=== PATIENT | male | born 1940 | race Hispanic/Latino ===

== ENCOUNTER 2019-10-19 12:38 | Inpatient (IN) | payer BC, MEDICARE ==
[2019-10-19] MEDS ORDERED: DEXTROSE 50% IN WATER (25GM) 50 ML SYRINGE IV PRN (16:25)
[2019-10-19] MEDS ORDERED: ACETAMINOPHEN 325 MG TAB PO PRN (16:35)
[2019-10-19] MEDS ORDERED: hydrALAZINE 20 MG/1 ML INJ IV PRN (16:35)
[2019-10-19] MEDS ORDERED: POLYETHYLENE GLYCOL 3350 17 GM POWDER PO PRN (16:35)
[2019-10-19] MEDS ORDERED: ONDANSETRON 4 MG ODT TAB PO PRN (16:35)
[2019-10-19] MEDS ORDERED: ALBUTEROL 2.5 MG/3 ML NEBU IH PRN (16:35)
[2019-10-19] MEDS ORDERED: LACTULOSE 20 GM/30 ML ORAL LIQD PO PRN (16:38)
--- NOTE | 2019-10-19 17:46 | History and Physical Report ---
History of Present Illness Date: 10/19/19 Date of admission: 10/19/19 17:33 Chief Complaint: Left hip fracture History of present illness: 79-year-old male who slipped exiting the shower resulting in left hip and shoulder pain. He was at his vacation home in [place] when this occurred and was transferred to the nearest ER in [place]. Denies hitting his head and once in the ER was found to have a left intertrochanteric fracture on x-ray. He was admitted and underwent repair by IM nail with Dr. Bernabe Valiente on October 07, 2019. There were no surgical complications. He was started on Eliquis for DVT prophylaxis. He is weightbearing as tolerated. He was evaluated by therapy and deemed to be an appropriate candidate for inpatient rehabilitation. Once he was medically stabilized he was transferred back to [place] for rehabilitation. All available medical records have been reviewed. Plan of care was discussed with patient and family. On exam patient states that he has a history of vitamin B-12 deficiency for which he takes an excessive amount of vitamin B12 daily. He also states that he has had an iron deficiency and continues to take iron replacement as well. Will check lab values to ensure that we need to continue with replacement. 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 He does state this is been ongoing for several years and he does drop things at times. Nothing makes it better and use will often times aggravated. He questions whether or not this is coming from the neck possibly or if it is related to his diabetes. A1c is very low and he has been borderline but this could still be diabetic in nature are very well may be nutritional or peripheral in nature. Discussed with him needing to get a referral for outpatient testing utilizing EMG nerve conduction studies in order to elucidate the issue. We will attempt to draw labs to further work-up. He also states that he does have issues with balance but primarily only when outside on uneven surfaces. Denies using a cane or any other assistive device but states that he has had near falls in the past. 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 denies: smoking, alcohol abuse, prescription drug abuse Family history: cancer, hypertension, stroke Medications and Allergies Allergies Allergy/AdvReac Type Severity Reaction Status Date / Time No Known Allergies Allergy Verified 10/19/19 12:40 Home Medications Medication Instructions Recorded Confirmed Last Taken Type Eliquis 2.5 mg PO BID 10/20/19 10/20/19 10/18/19 History Ergocalciferol (Vitamin D2) 1.25 mg PO QWEEK 10/20/19 10/20/19 10/19/19 History [Vitamin D2] Insulin Glargine [Lantus VIAL] 8 units SQ QHS 10/20/19 10/20/19 10/20/19 History Lactulose 10 gm PO DAILY 10/20/19 10/20/19 Unknown History Pantoprazole [Protonix] 40 mg PO QDAY 10/20/19 10/20/19 10/19/19 History amLODIPine 10 mg PO DAILY 10/20/19 10/20/19 10/18/19 History carvediloL [Coreg] 12.5 mg PO BID 10/20/19 10/20/19 10/19/19 History Active Meds: Active Medications Acetaminophen (Tylenol) 650 mg PO Q6H PRN PRN Reason: Non Cardiac Pain or Temp>100.5 Albuterol (Proventil) 2.5 mg IH Q4HRT PRN PRN Reason: Shortness Of Breath Amlodipine Besylate (Amlodipine) 10 mg PO QDAY [facility] Apixaban (Eliquis) 2.5 mg PO Q12HR [facility]; Protocol Stop: 11/08/19 23:59 Ascorbic Acid (Vitamin C) 500 mg PO QDAY [facility] Aspirin (Halfprin Ec) 81 mg PO QDAY [facility] Bisacodyl (Dulcolax) 10 mg VT QDAY PRN PRN Reason: Constipation Carvedilol (Coreg) 12.5 mg PO BID [facility] Cyanocobalamin (Vitamin B-12) 1,000 mcg PO QDAY [facility] Dextrose (D50w (25gm) Syringe) 50 ml IV Q30MIN PRN; Protocol PRN Reason: Hypoglycemia Ferrous Sulfate (Feosol) 325 mg PO QDAY [facility] Fish Oil (Fish Oil) 2,000 mg PO BID [facility] Hydralazine HCl (Apresoline) 10 mg IV Q4HR PRN PRN Reason: HTN SBP>160 Insulin Glargine (Lantus) 10 units SUB-Q QHS [facility] Insulin Human Lispro (Humalog) 0 unit SUB-Q ACHS [facility]; Protocol Lactulose (Cephulac) 20 gm PO QHS PRN PRN Reason: Constipation Multivitamins/Minerals (Caltrate Plus) 1 each PO QDAY [facility] Ondansetron HCl (Zofran Odt) 4 mg PO Q8H PRN PRN Reason: Nausea And Vomiting Pantoprazole Sodium (Protonix) 40 mg PO QDAY [facility] Polyethylene Glycol (Miralax 3350) 17 gm PO QDAY PRN PRN Reason: Constipation Review of Systems All systems: negative (ROS negative for 12 systems except as noted below with pertinent positives and negatives.) Constitutional: weakness Ears, nose, mouth and throat: decreased hearing Cardiovascular: no chest pain, no palpitations, no rapid/irregular heart beat, no edema Respiratory: no cough, no shortness of breath Gastrointestinal: other (Incisional hernia), no abdominal pain, no diarrhea, no constipation, no change in bowel habits Musculoskeletal: gait dysfunction, fractures, arthritis Integumentary: wounds, no rash, no pruritis Neurological: weakness, numbness Psychiatric: insomnia Exam - Exam Narrative exam: MUSCULOSKELETAL SPECIALTY EXAM CONSTITUTIONAL: Well developed, well nourished, appropriately groomed, obese LYMPHATIC: No appreciable abnormalities palpable in neck EENT: EOMI. Oropharynx clear. Hearing intact to louder voice RESPIRATORY: Clear to auscultation bilaterally, no increased work of breathing CARDIOVASCULAR: Mild postsurgical swelling on left lower extremity as expected, otherwise regular Rate/ Rhythm, no swelling, edema or tenderness in BUE or BLE. Pulses palpable in all extremities. All extremities warm. GI: + bowel sounds, soft, NTTP, nondistended. Large ventral hernia, reducible, incisional with associated scarring. INTEGUMENTARY: Normal, no lesion, rash, masses or bruising noted in extremities. Abdominal scarring as noted above. MUSCULOSKELETAL: Left IM nail for hip fracture repair, remote left TKA, arthritic changes in hands otherwise BUE and BLE normal without defect, crepitus, subluxation, effusion, or TTP. RUE 4+/5, good ROM, with normal tone. LUE has decreased range of motion due to pain, normal tone,4+/5 RLE 4+/5 good ROM, with normal tone. LLE has decreased range of motion due to pain, normal tone,4+/5 Slight wasting noted right greater than left of the first dorsal interosseous. Environmental Advisor intact. NEURO: CN 2-12 grossly intact. Sensation intact in all extremities with some decrease in the lower extremities and at the hands. Reflexes 2+ bilaterally at biceps, brachioradialis and patella. No clonus at ankles. Coordination intact in BUE. No tremor noted in 4 extremities. Negative Tinel sign at the bilateral carpal and cubital tunnels POSTURE and GAIT: Sitting posture good. Balance appears reasonable. Gait deferred until seen with therapy. PSYCH: Alert, oriented x3, affect appears normal. Insight appears intact. - Labs CBC & Chem 7: 10/20/19 07:45 10/20/19 07:45 Assessment and Plan Assessment and plan: Patient was assessed and evaluated for Acute Inpatient Rehab Unit. Due to the patients above-mentioned medical complexity, along with decreased functional mobility and self care, this patient continues to require and be appropriate for a comprehensive, multidisciplinary [id number] rehabilitation program. These needs cannot be met in an outpatient or other less intensive setting. The patient would continue to benefit from skilled therapy intervention for at least 3 hours per day, five days a week, with techniques specific to the needs of the patient to improve function, activities of daily living, and reintegration into the community. The patient continues to require: -- OT to improve ROM, self-care, and learn use of adaptive equipment -- PT to improve strength and balance, functional transfers, and ambulation with energy conservation techniques to improve functional mobility -- 24 hour RN to ensure and prevent skin breakdown, promote progressive independence while ensuring safety, ensure education regarding medications, and incorporation of the rehabilitation at the bedside -- 24 hour Cardboard Cutter to coordinate this interdisciplinary program, and to manage/prevent complications as a result of the patients medical comorbidities. -Plan of care by day 4 -Weekly team conferences With such a program, there is a reasonable certainty that the goals individualized for this patient can be achieved within the specified length of stay. Left hip fracture: Continue therapy as above. Increase mobility as tolerated. Continue to monitor wound with wound team. Weightbearing as tolerated per surgeon's instructions. Eliquis for DVT prophylaxis. Monitor for any signs of wound dehiscence, infection or increasing pain. Hypertension: Continue medications. Monitor blood pressure and adjust medications as needed for normotension. Hold for hypotension Diabetes type 2: Continue carb controlled diet. Continue insulin and adjust as needed for normoglycemia. Check A1c Short bowel syndrome: We will check labs. Uncertain at this point what portion of the bowel the patient had removed and we are relying on his recollection of over 20 years ago. Question why he was taking vitamin B12 orally versus injections if he did not have a terminal ileum. Anemia: Continue iron B12. Monitor hemoglobin on a regular basis adjust medications as needed. Patient believes he may have had anemia before but this is likely exacerbated by postsurgical changes as well. Bilateral upper extremity numbness and weakness: We will check lab values. Patient will need further work-up as an outpatient with needle EMG and nerve conduction study. Less likely that this is coming from cervical cause as the patient does not describe any radicular symptoms. After we have baseline labs will consider starting gabapentin for symptomatic relief. Possible renal issue: Reported at outside hospital as a possibility but details were lacking. Patient not real helpful in this regard other than the fact that he thinks he had renal problems. Will monitor renal function and adjust medications as needed if this is indeed the case. ADL dysfunction: OT will work on improving ability to perform ADLs (including assistive devices) to increase independence and decrease caregiver burden and improve functional transfers and mobility training. Difficulty walking: PT will work on gait training and proper use of assistive devices and advance as appropriate to use of stairs and outside ambulation on uneven surfaces. Unsteadiness on feet: PT will work on improving static and dynamic sitting and standing balance as well as proper use of assistive devices to decrease risk of falls. Abnormality of gait: PT will work to improve safety and efficiency of gait through neuromotor training and gait training along with instruction on proper use of assistive devices. Muscle weakness: PT & OT will work on strengthening exercises to improve funct ional strength including mixture of closed and open kinetic chain exercises. Debility: PT & OT will work on improving overall functional status to improve participation with ADLs, mobility and social involvement. Fatigue: PT & OT will work on improving endurance through aerobic exercises and therapeutic activity while monitoring patients tolerance for activity and vital signs as needed. DVT ppx: Eliquis Pain: Continue physical modalities in therapy and pain medications as needed to achieve functional pain control. Sleep: Monitor and address as needed. Bowel: Monitor and address as needed. Appetite: Monitor and address as needed. Discharge planning: Pending therapy progress and care plan meeting. Will continue discussion with therapy team, SW, patient and family. Restrictions/ Precautions: Falls WB status: FWB Functional Hx: ADLs: Independent Cognition: Independent Mobility: No AD Barriers to Discharge: Decreased mobility and ability to perform self care, balance deficits, weakness, wound care Estimated Length of Stay: 14-18 days days Discharge Destination: Home with family POST ADMISSION PHYSICIAN EVALUATION I have examined the patient and find that functional status, medical condition and appropriateness for IRF admission are essentially unchanged from those de scribed in the preadmission screening. Will monitor for worsening left hip wound, pain control, wound dehiscence, DVT/PE, bowel and bladder complications and complications due to hypertension, diabetes, short bowel syndrome and electrolyte abnormalities. Will attempt to avoid occurrence of these issues or treat them if they present themselves.
[2019-10-19] MEDS: APIXABAN 2.5 MG TAB PO SCH (22:03)
[2019-10-19] MEDS: OMEGA-3 FATTY ACIDS/FISH OIL 1 GRAM CAP PO SCH (22:03)
[2019-10-19] MEDS: INSULIN GLARGINE 100 UNITS/ML SUB-Q SCH (22:17)
[2019-10-19] MEDS: INSULIN LISPRO 100 UNIT/ML SUB-Q SCH ×2 (22:17→22:27)
[2019-10-19] MEDS: carvediloL 12.5 MG TAB PO SCH (22:20)
[2019-10-20 08:44] LABS: Basophils # (Auto) 0.1 K/mm3 (0.0-0.1); Basophils % (Auto) 0.8 % (0.0-1.8); Eosinophils # (Auto) 0.2 K/mm3 (0.0-0.4); Hematocrit 32.7 % (35.5-45.6); Hemoglobin 10.3 gm/dl (11.8-15.2); Lymphocytes % (Auto) 13.8 % (13.4-35.0); Mean Corpuscular HGB Conc 32 % (32-34); Mean Corpuscular Volume 94 fl (84-94); Monocytes # (Auto) 0.6 K/mm3 (0.0-0.8); Platelet Count 521 K/mm3 (140-440); Red Blood Count 3.47 M/mm3 (3.65-5.03); Red Cell Distribution Width 17.4 % (13.2-15.2)
[2019-10-20] MEDS: INSULIN LISPRO 100 UNIT/ML SUB-Q SCH ×4 (08:48→22:07)
[2019-10-20] MEDS: ASCORBIC ACID 500 MG TAB PO SCH (08:51)
[2019-10-20] MEDS: carvediloL 12.5 MG TAB PO SCH ×2 (08:51→22:16)
[2019-10-20] MEDS: FERROUS SULFATE 325 MG TAB PO SCH (08:51)
[2019-10-20] MEDS: amLODIPine 10 MG TAB PO SCH (08:51)
[2019-10-20] MEDS: APIXABAN 2.5 MG TAB PO SCH ×3 (08:51→22:06)
[2019-10-20] MEDS: OMEGA-3 FATTY ACIDS/FISH OIL 1 GRAM CAP PO SCH ×2 (08:51→22:07)
[2019-10-20] MEDS: PANTOPRAZOLE 40 MG TAB PO SCH (08:51)
[2019-10-20] MEDS: CALCIUM CARB/VIT D3/MINERALS 600 MG/800 UNITS TAB PO SCH (08:51)
[2019-10-20] MEDS: ASPIRIN EC 81 MG TAB PO SCH (08:51)
[2019-10-20] MEDS: CYANOCOBALAMIN (VIT B-12) 1000 MCG TAB PO SCH (08:51)
[2019-10-20 09:03] LABS: Alanine Aminotransferase 37 units/L (7-56); Albumin 3.2 g/dL (3.9-5); BUN/Creatinine Ratio 15; Blood Urea Nitrogen 17 mg/dL (9-20); Calcium 8.8 mg/dL (8.4-10.2); Hemolysis Index 2; Iron 32 ug/dL (49-181); Total Iron Binding Capacity 252 mcg/dL (250-450)
--- NOTE | 2019-10-20 15:26 | Progress Note ---
Subjective Date of service: 10/20/19 Principal diagnosis: Left hip fracture Interval history: 79-year-old male who slipped exiting the shower resulting in left hip and shoulder pain. He was at his vacation home in [place] when this occurred and was transferred to the nearest ER in [place]. Denies hitting his head and once in the ER was found to have a left intertrochanteric fracture on x-ray. He was admitted and underwent repair by IM nail with Dr. Bernabe Valiente on October 07, 2019. There were no surgical complications. He was started on Eliquis for DVT prophylaxis. He is weightbearing as tolerated. He was evaluated by therapy and deemed to be an appropriate candidate for inpatient rehabilitation. Once he was medically stabilized he was transferred back to [place] for rehabilitation. All available medical records have been reviewed. Plan of care was discussed with patient and family. On exam patient states that he has a history of vitamin B-12 deficiency for which he takes an excessive amount of vitamin B12 daily. He also states that he has had an iron deficiency and continues to take iron replacement as well. Will check lab values to ensure that we need to continue with replacement. 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 He does state this is been ongoing for several years and he does drop things at times. Nothing makes it better and use will often times aggravated. He questions whether or not this is coming from the neck possibly or if it is related to his diabetes. A1c is very low and he has b een borderline but this could still be diabetic in nature are very well may be nutritional or peripheral in nature. Discussed with him needing to get a referral for outpatient testing utilizing EMG nerve conduction studies in order to elucidate the issue. We will attempt to draw labs to further work-up. He also states that he does have issues with balance but primarily only when outside on uneven surfaces. Denies using a cane or any other assistive device but states that he has had near falls in the past. Interval History: Patient is participating in therapy and making reasonable progress. Taking rest breaks as needed. +BM. Denies pain, palpitations, dyspnea, cough, N/V, weakness, or joint pain. Left hip fracture: Pain well controlled with medication. No signs of DVT, abnormal swelling, wound dehiscence, infection. Continue weightbearing as tolerated and therapy as noted below. Hypertension: Slightly on the higher side. We will continue to monitor and adjust medications if still elevated tomorrow. Diabetes: Suffer glucose checks have been reasonable. Hemoglobin A1c was 7.0. Continue insulin and carb controlled diet and adjust as needed. Anemia: Normocytic anemia with decreased level of iron and normal TIBC and ferritin and elevated folate and vitamin B12. 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 Do not have good information or ability to look into historical record. Patient is thinking that part of the ileum as well as colon were taken however his description of the surgery has varied. Vitamin B12 folate are both elevated, iron is slightly decreased. Possible renal disease: Based on laboratory values obtained this morning, do not see any issues with renal function at this point. However the patient does have issues with both diabetes and hypertension so watching his renal function would be a good idea for the patient in the long-term. Neuropathy: Neuropathic pain continues. Will start gabapentin and monitor for improvement. Patient will need to follow-up with either neurology or interve ntional PMNR who can perform a nerve conduction study and EMG. All records, vitals, labs and medications were reviewed. No other issues per patient, nursing or therapy. Patient discussed during team conference. This is initial therapy eval's in session. We will continue to work with the patient and reassess next week. Looking at the beginning of November for likely discharge date at this point. Objective - Exam Narrative Exam: MUSCULOSKELETAL SPECIALTY EXAM CONSTITUTIONAL: Well developed, well nourished, appropriately groomed, obese EENT: Hearing intact to louder voice RESPIRATORY: Clear to auscultation bilaterally, no increased work of breathing CARDIOVASCULAR: Mild postsurgical swelling on left lower extremity as expected, otherwise regular Rate/ Rhythm, no swelling, edema or tenderness in BUE or BLE. All extremities warm. GI: + bowel sounds, soft, NTTP, nondistended. Large ventral hernia, reducible, incisional with associated scarring. INTEGUMENTARY: Normal, no lesion, rash, masses or bruising noted in extremities. Abdominal scarring as noted above. MUSCULOSKELETAL: Left IM nail for hip fracture repair, remote left TKA, arthritic changes in hands otherwise BUE and BLE normal without defect, crepitus, subluxation, effusion, or TTP. RUE 4+/5, good ROM, with normal tone. LUE has decreased range of motion due to pain, normal tone,4+/5 RLE 4+/5 good ROM, with normal tone. LLE has decreased range of motion due to pain, normal tone,4+/5 Slight wasting noted right greater than left of the first dorsal interosseous. Patient Resource Coordinator intact. NEURO: CN 2-12 grossly intact. Sensation intact in all extremities with some decrease in the lower extremities and at the hands. No tremor noted in 4 extremities. POSTURE and GAIT: Sitting posture good. Balance appears reasonable. Gait deferred until seen with therapy. PSYCH: Alert, oriented x3, affect appears normal. Insight appears intact. - Constitutional Vitals: Vital Signs - 12hr 10/20/19 10/20/19 10/20/19 04:37 07:45 09:53 Temperature 98.6 F 98.3 F Pulse Rate 84 71 Respiratory 17 18 Rate Blood Pressure 157/84 143/69 O2 Sat by Pulse 94 94 95 Oximetry 10/20/19 11:25 Temperature 98.5 F Pulse Rate 74 Respiratory 18 Rate Blood Pressure 139/65 O2 Sat by Pulse 94 Oximetry - Allied health notes Allied health notes reviewed: nursing, PT, OT FIMS assessment as documented by PT/OT/ST: Locomotion- walk/wheelchair Ambulation Distance 50 - Labs CBC & Chem 7: 10/20/19 07:45 10/20/19 07:45 Labs: Laboratory Results - last 72 hr 10/19/19 10/20/19 10/20/19 20:58 07:31 07:45 WBC 7.0 RBC 3.47 L Hgb 10.3 L Hct 32.7 L MCV 94 MCH 30 MCHC 32 RDW 17.4 H Plt Count 521 H Lymph % (Auto) 13.8 [place] % (Auto) 9.0 H Eos % (Auto) 3.0 Baso % (Auto) 0.8 Lymph # 1.0 L [place] # 0.6 Eos # 0.2 Baso # 0.1 Seg Neutrophils % 73.4 H Seg Neutrophils # 5.1 Sodium Potassium Chloride Carbon Dioxide Anion Gap BUN Creatinine Estimated GFR BUN/Creatinine Ratio Glucose POC Glucose 178 H 121 H Hemoglobin A1c Calcium Iron TIBC Ferritin Total Bilirubin AST ALT Alkaline Phosphatase Total Protein Albumin Albumin/Globulin Ratio Vitamin B12 Folate 10/20/19 10/20/19 10/20/19 07:45 07:45 07:45 WBC RBC Hgb Hct MCV MCH MCHC RDW Plt Count Lymph % (Auto) [place] % (Auto) Eos % (Auto) Baso % (Auto) Lymph # [place] # Eos # Baso # Seg Neutrophils % Seg Neutrophils # Sodium 137 Potassium 4.3 Chloride 102.0 Carbon Dioxide 22 Anion Gap 17 BUN 17 Creatinine 1.1 Estimated GFR > 60 BUN/Creatinine Ratio 15 Glucose 121 H POC Glucose Hemoglobin A1c 7.0 H Calcium 8.8 Iron 32 L TIBC 252 Ferritin 69.4 Total Bilirubin 0.60 AST 22 ALT 37 Alkaline Phosphatase 143 H Total Protein 6.0 L Albumin 3.2 L Albumin/Globulin Ratio 1.1 Vitamin B12 Folate 10/20/19 10/20/19 10/20/19 07:45 07:45 11:15 WBC RBC Hgb Hct MCV MCH MCHC RDW Plt Count Lymph % (Auto) [place] % (Auto) Eos % (Auto) Baso % (Auto) Lymph # [place] # Eos # Baso # Seg Neutrophils % Seg Neutrophils # Sodium Potassium Chloride Carbon Dioxide Anion Gap BUN Creatinine Estimated GFR BUN/Creatinine Ratio Glucose POC Glucose 134 H Hemoglobin A1c Calcium Iron TIBC Ferritin Total Bilirubin AST ALT Alkaline Phosphatase Total Protein Albumin Albumin/Globulin Ratio Vitamin B12 > 2000 H Folate > 20 Assessment and Plan Left hip fracture: Continue therapy as above. Increase mobility as tolerated. Continue to monitor wound with wound team. Weightbearing as tolerated per surgeon's instructions. Eliquis for DVT prophylaxis. Monitor for any signs of wound dehiscence, infection or increasing pain. Hypertension: Continue medications. Monitor blood pressure and adjust medications as needed for normotension. Hold for hypotension Diabetes type 2: Continue carb controlled diet. Continue insulin and adjust as needed for normoglycemia. A1c 7.0 Short bowel syndrome: Uncertain at this point what portion of the bowel the patient had removed and we are relying on his recollection of over 20 years ago. Question why he was taking vitamin B12 orally versus injections if he did not have a terminal ileum. Patient states he is only taking vitamin B12 orally and his level is greater than 2000. Uncertain how much of the terminal ileum was resected if any. Did discuss with the patient that based on his lab level he is able to safely reduce his intake of vitamin B12 if he wishes. Anemia: Monitor hemoglobin on a regular basis adjust medications as needed. Patient believes he may have had anemia before but this is likely exacerbated by postsurgical changes as well. Bilateral upper extremity numbness and weakness: We will check lab values. Patient will need further work-up as an outpatient with needle EMG and nerve conduction study. Less likely that this is coming from cervical cause as the patient does not describe any radicular symptoms. Start gabapentin for symptomatic relief. Discussed side effects with the patient Possible renal issue: Reported at outside hospital as a possibility but details were lacking. Patient not real helpful in this regard other than the fact that he thinks he had renal problems. Will monitor renal function and adjust medications as needed if this is indeed the case. ADL dysfunction: OT will work on improving ability to perform ADLs (including assistive devices) to increase independence and decrease caregiver burden and improve functional transfers and mobility training. Difficulty walking: PT will work on gait training and proper use of assistive devices and advance as appropriate to use of stairs and outside ambulation on uneven surfaces. Unsteadiness on feet: PT will work on improving static and dynamic sitting and standing balance as well as proper use of assistive devices to decrease risk of falls. Abnormality of gait: PT will work to improve safety and efficiency of gait through neuromotor training and gait training along with instruction on proper use of assistive devices. Muscle weakness: PT & OT will work on strengthening exercises to improve functional strength including mixture of closed and open kinetic chain exercises. Debility: PT & OT will work on improving overall functional status to improve participation with ADLs, mobility and social involvement. Fatigue: PT & OT will work on improving endurance through aerobic exercises and therapeutic activity while monitoring patients tolerance for activity and vital signs as needed. DVT ppx: Eliquis Pain: Continue physical modalities in therapy and pain medications as needed to achieve functional pain control. Sleep: Monitor and address as needed. Bowel: Monitor and address as needed. Appetite: Monitor and address as needed. Discharge planning: Pending therapy progress and care plan meeting. Will continue discussion with therapy team, SW, patient and family. Restrictions/ Precautions: Falls WB status: FWB Functional Hx: ADLs: Independent Cognition: Independent Mobility: No AD Barriers to Discharge: Decreased mobility and ability to perform self care, balance deficits, weakness, wound care Estimated Length of Stay: 14-18 days days Discharge Destination: Home with family
[2019-10-20] MEDS: INSULIN GLARGINE 100 UNITS/ML SUB-Q SCH (22:05)
[2019-10-20] MEDS: GABAPENTIN 300 MG CAP PO SCH (22:06)
[2019-10-21] MEDS: CALCIUM CARB/VIT D3/MINERALS 600 MG/800 UNITS TAB PO SCH (08:45)
[2019-10-21] MEDS: FERROUS SULFATE 325 MG TAB PO SCH (08:45)
[2019-10-21] MEDS: carvediloL 12.5 MG TAB PO SCH (08:45)
[2019-10-21] MEDS: OMEGA-3 FATTY ACIDS/FISH OIL 1 GRAM CAP PO SCH ×2 (08:45→22:52)
[2019-10-21] MEDS: ASCORBIC ACID 500 MG TAB PO SCH (08:45)
[2019-10-21] MEDS: ASPIRIN EC 81 MG TAB PO SCH (08:46)
[2019-10-21] MEDS: amLODIPine 10 MG TAB PO SCH (08:46)
[2019-10-21] MEDS: CYANOCOBALAMIN (VIT B-12) 1000 MCG TAB PO SCH (08:46)
[2019-10-21] MEDS: PANTOPRAZOLE 40 MG TAB PO SCH (08:46)
[2019-10-21] MEDS: INSULIN LISPRO 100 UNIT/ML SUB-Q SCH ×4 (08:47→23:00)
[2019-10-21] MEDS: APIXABAN 2.5 MG TAB PO SCH ×2 (09:05→22:53)
--- NOTE | 2019-10-21 13:18 | Progress Note ---
Subjective Date of service: 10/21/19 Principal diagnosis: Left hip fracture Interval history: 79-year-old male who slipped exiting the shower resulting in left hip and shoulder pain. He was at his vacation home in [place] when this occurred and was transferred to the nearest ER in [place]. Denies hitting his head and once in the ER was found to have a left intertrochanteric fracture on x-ray. He was admitted and underwent repair by IM nail with Dr. Bernabe Valiente on October 07, 2019. There were no surgical complications. He was started on Eliquis for DVT prophylaxis. He is weightbearing as tolerated. He was evaluated by therapy and deemed to be an appropriate candidate for inpatient rehabilitation. Once he was medically stabilized he was transferred back to [place] for rehabilitation. All available medical records have been reviewed. Plan of care was discussed with patient and family. On exam patient states that he has a history of vitamin B-12 deficiency for which he takes an excessive amount of vitamin B12 daily. He also states that he has had an iron deficiency and continues to take iron replacement as well. Will check lab values to ensure that we need to continue with replacement. 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 He does state this is been ongoing for several years and he does drop things at times. Nothing makes it better and use will often times aggravated. He questions whether or not this is coming from the neck possibly or if it is related to his diabetes. A1c is very low and he has b een borderline but this could still be diabetic in nature are very well may be nutritional or peripheral in nature. Discussed with him needing to get a referral for outpatient testing utilizing EMG nerve conduction studies in order to elucidate the issue. We will attempt to draw labs to further work-up. He also states that he does have issues with balance but primarily only when outside on uneven surfaces. Denies using a cane or any other assistive device but states that he has had near falls in the past. Interval History: Patient is participating in therapy and making reasonable progress. Taking rest breaks as needed. +BM. Denies pain, palpitations, dyspnea, cough, N/V, weakness, or joint pain. Patient has given me FMLA paperwork for work to fill out. Left hip fracture: Pain well controlled with medication. No signs of DVT, abnormal swelling, wound dehiscence, infection. Continue weightbearing as tolerated and therapy as noted below. Hypertension: Continues to be elevated. Increase Coreg and monitor. Diabetes: Hemoglobin A1c was 7.0. Will discontinue Lantus and start metformin since renal function is within normal limits. Continue SSI and carb controlled diet and adjust as needed. Anemia: Normocytic anemia with decreased level of iron and normal TIBC and f erritin and elevated folate and vitamin B12. 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 Do not have good information or ability to look into historical record. Patient is thinking that part of the ileum as well as colon were taken however his descr iption of the surgery has varied. Vitamin B12 folate are both elevated, iron is slightly decreased. Possible renal disease: Based on laboratory values obtained this morning, do not see any issues with renal function at this point. However the patient does have issues with both diabetes and hypertension so watching his renal function would be a good idea for the patient in the long-term. Neuropathy: Neuropathic pain continues. Will start gabapentin and monitor for improvement. Patient will need to follow-up with either neurology or interventional PMNR who can perform a nerve conduction study and EMG. All records, vitals, labs and medications were reviewed. No other issues per patient, nursing or therapy. Objective - Exam Narrative Exam: MUSCULOSKELETAL SPECIALTY EXAM CONSTITUTIONAL: Well developed, well nourished, appropriately groomed, obese EENT: Hearing intact to louder voice RESPIRATORY: Clear to auscultation bilaterally, no increased work of breathing CARDIOVASCULAR: Mild postsurgical swelling on left lower extremity as expected, otherwise regular Rate/ Rhythm, no swelling, edema or tenderness in BUE or BLE. All extremities warm. GI: + bowel sounds, soft, NTTP, nondistended. Large ventral hernia, reducible, incisional with associated scarring. INTEGUMENTARY: Normal, no lesion, rash, masses or bruising noted in extremities. Abdominal scarring as noted above. MUSCULOSKELETAL: Left IM nail for hip fracture repair, remote left TKA, arthritic changes in hands otherwise BUE and BLE normal without defect, crepitus, subluxation, effusion, or TTP. RUE 4+/5, good ROM, with normal tone. LUE has decreased range of motion due to pain, normal tone,4+/5 RLE 4+/5 good ROM, with normal tone. LLE has decreased range of motion due to pain, normal tone,4+/5 Slight wasting noted right greater than left of the first dorsal interosseous. [employer] intact. NEURO: CN 2-12 grossly intact. Sensation intact in all extremities with some decrease in the lower extremities and at the hands. No tremor noted in 4 extremities. POSTURE and GAIT: Sitting posture good. Balance appears reasonable. Gait reasonable with shorter steps, antalgic in nature, no overt loss of balance witnessed. PSYCH: Alert, oriented x3, affect appears normal. Insight appears intact. - Constitutional Vitals: Vital Signs - 12hr 10/21/19 10/21/19 10/21/19 05:00 07:08 08:45 Temperature 98.6 F 98.6 F Pulse Rate 74 73 Respiratory 17 18 Rate Blood Pressure 160/73 164/82 164/82 O2 Sat by Pulse 94 Oximetry 10/21/19 10/21/19 08:46 10:00 Temperature Pulse Rate 73 Respiratory Rate Blood Pressure 164/82 O2 Sat by Pulse 95 Oximetry - Allied health notes Allied health notes reviewed: nursing, PT, OT FIMS assessment as documented by PT/OT/ST: Locomotion- walk/wheelchair Ambulation Distance 50 - Labs CBC & Chem 7: 10/20/19 07:45 10/20/19 07:45 Labs: Laboratory Results - last 72 hr 10/19/19 10/20/19 10/20/19 20:58 07:31 07:45 WBC 7.0 RBC 3.47 L Hgb 10.3 L Hct 32.7 L MCV 94 MCH 30 MCHC 32 RDW 17.4 H Plt Count 521 H Lymph % (Auto) 13.8 Morton % (Auto) 9.0 H Eos % (Auto) 3.0 Baso % (Auto) 0.8 Lymph # 1.0 L Morton # 0.6 Eos # 0.2 Baso # 0.1 Seg Neutrophils % 73.4 H Seg Neutrophils # 5.1 Sodium Potassium Chloride Carbon Dioxide Anion Gap BUN Creatinine Estimated GFR BUN/Creatinine Ratio Glucose POC Glucose 178 H 121 H Hemoglobin A1c Calcium Iron TIBC Ferritin Total Bilirubin AST ALT Alkaline Phosphatase Total Protein Albumin Albumin/Globulin Ratio Vitamin B12 Folate 10/20/19 10/20/19 10/20/19 07:45 07:45 07:45 WBC RBC Hgb Hct MCV MCH MCHC RDW Plt Count Lymph % (Auto) Morton % (Auto) Eos % (Auto) Baso % (Auto) Lymph # Morton # Eos # Baso # Seg Neutrophils % Seg Neutrophils # Sodium 137 Potassium 4.3 Chloride 102.0 Carbon Dioxide 22 Anion Gap 17 BUN 17 Creatinine 1.1 Estimated GFR > 60 BUN/Creatinine Ratio 15 Glucose 121 H POC Glucose Hemoglobin A1c 7.0 H Calcium 8.8 Iron 32 L TIBC 252 Ferritin 69.4 Total Bilirubin 0.60 AST 22 ALT 37 Alkaline Phosphatase 143 H Total Protein 6.0 L Albumin 3.2 L Albumin/Globulin Ratio 1.1 Vitamin B12 Folate 10/20/19 10/20/19 10/20/19 07:45 07:45 11:15 WBC RBC Hgb Hct MCV MCH MCHC RDW Plt Count Lymph % (Auto) Morton % (Auto) Eos % (Auto) Baso % (Auto) Lymph # Morton # Eos # Baso # Seg Neutrophils % Seg Neutrophils # Sodium Potassium Chloride Carbon Dioxide Anion Gap BUN Creatinine Estimated GFR BUN/Creatinine Ratio Glucose POC Glucose 134 H Hemoglobin A1c Calcium Iron TIBC Ferritin Total Bilirubin AST ALT Alkaline Phosphatase Total Protein Albumin Albumin/Globulin Ratio Vitamin B12 > 2000 H Folate > 20 10/20/19 10/20/19 10/21/19 16:22 21:56 07:13 WBC RBC Hgb Hct MCV MCH MCHC RDW Plt Count Lymph % (Auto) Morton % (Auto) Eos % (Auto) Baso % (Auto) Lymph # Morton # Eos # Baso # Seg Neutrophils % Seg Neutrophils # Sodium Potassium Chloride Carbon Dioxide Anion Gap BUN Creatinine Estimated GFR BUN/Creatinine Ratio Glucose POC Glucose 197 H 193 H 128 H Hemoglobin A1c Calcium Iron TIBC Ferritin Total Bilirubin AST ALT Alkaline Phosphatase Total Protein Albumin Albumin/Globulin Ratio Vitamin B12 Folate 10/21/19 11:10 WBC RBC Hgb Hct MCV MCH MCHC RDW Plt Count Lymph % (Auto) Morton % (Auto) Eos % (Auto) Baso % (Auto) Lymph # Morton # Eos # Baso # Seg Neutrophils % Seg Neutrophils # Sodium Potassium Chloride Carbon Dioxide Anion Gap BUN Creatinine Estimated GFR BUN/Creatinine Ratio Glucose POC Glucose 154 H Hemoglobin A1c Calcium Iron TIBC Ferritin Total Bilirubin AST ALT Alkaline Phosphatase Total Protein Albumin Albumin/Globulin Ratio Vitamin B12 Folate Assessment and Plan Left hip fracture: Continue therapy as above. Increase mobility as tolerated. Continue to monitor wound with wound team. Weightbearing as tolerated per surgeon's instructions. Eliquis for DVT prophylaxis. Monitor for any signs of wound dehiscence, infection or increasing pain. Hypertension: Continue medications. Monitor blood pressure and adjust medications as needed for normotension. Hold for hypotension Diabetes type 2: Continue carb controlled diet. Continue metformin and SSI and adjust as needed for normoglycemia. A1c 7.0 Short bowel syndrome: Uncertain at this point what portion of the bowel the patient had removed and we are relying on his recollection of over 20 years ago. Question why he was taking vitamin B12 orally versus injections if he did not have a terminal ileum. Patient states he is only taking vitamin B12 orally and his level is greater than 2000. Uncertain how much of the terminal ileum was resected if any. Did discuss with the patient that based on his lab level he is able to safely reduce his intake of vitamin B12 if he wishes. Anemia: Monitor hemoglobin on a regular basis adjust medications as needed. Patient believes he may have had anemia before but this is likely exacerbated by postsurgical changes as well. Bilateral upper extremity numbness and weakness: We will check lab values. Patient will need further work-up as an outpatient with needle EMG and nerve conduction study. Less likely that this is coming from cervical cause as the patient does not describe any radicular symptoms. Start gabapentin for symptomatic relief. Discussed side effects with the patient Possible renal issue: Reported at outside hospital as a possibility but details were lacking. Patient not real helpful in this regard other than the fact that he thinks he had renal problems. Will monitor renal function and adjust medications as needed if this is indeed the case. ADL dysfunction: OT will work on improving ability to perform ADLs (including assistive devices) to increase independence and decrease caregiver burden and improve functional transfers and mobility training. Difficulty walking: PT will work on gait training and proper use of assistive devices and advance as appropriate to use of stairs and outside ambulation on uneven surfaces. Unsteadiness on feet: PT will work on improving static and dynamic sitting and standing balance as well as proper use of assistive devices to decrease risk of falls. Abnormality of gait: PT will work to improve safety and efficiency of gait through neuromotor training and gait training along with instruction on proper use of assistive devices. Muscle weakness: PT & OT will work on strengthening exercises to improve functional strength including mixture of closed and open kinetic chain exercises. Debility: PT & OT will work on improving overall functional status to improve participation with ADLs, mobility and social involvement. Fatigue: PT & OT will work on improving endurance through aerobic exercises and therapeutic activity while monitoring patients tolerance for activity and vital signs as needed. DVT ppx: Eliquis Pain: Continue physical modalities in therapy and pain medications as needed to achieve functional pain control. Sleep: Monitor and address as needed. Bowel: Monitor and address as needed. Appetite: Monitor and address as needed. Discharge planning: Pending therapy progress and care plan meeting. Will continue discussion with therapy team, SW, patient and family. Restrictions/ Precautions: Falls WB status: FWB Functional Hx: ADLs: Independent Cognition: Independent Mobility: No AD Barriers to Discharge: Decreased mobility and ability to perform self care, balance deficits, weakness, wound care Estimated Length of Stay: 14-18 days days Discharge Destination: Home with family
[2019-10-21] MEDS: metFORMIN 500 MG TAB PO SCH (17:12)
[2019-10-21] MEDS: carvediloL 25 MG TAB PO SCH ×2 (20:30→22:54)
[2019-10-21] MEDS: GABAPENTIN 300 MG CAP PO SCH (22:53)
[2019-10-22] MEDS: CALCIUM CARB/VIT D3/MINERALS 600 MG/800 UNITS TAB PO SCH (08:50)
[2019-10-22] MEDS: metFORMIN 500 MG TAB PO SCH ×2 (08:50→17:07)
[2019-10-22] MEDS: carvediloL 25 MG TAB PO SCH (08:50)
[2019-10-22] MEDS: CYANOCOBALAMIN (VIT B-12) 1000 MCG TAB PO SCH (08:50)
[2019-10-22] MEDS: ASPIRIN EC 81 MG TAB PO SCH (08:50)
[2019-10-22] MEDS: amLODIPine 10 MG TAB PO SCH (08:50)
[2019-10-22] MEDS: ASCORBIC ACID 500 MG TAB PO SCH (08:51)
[2019-10-22] MEDS: OMEGA-3 FATTY ACIDS/FISH OIL 1 GRAM CAP PO SCH ×2 (08:51→21:23)
[2019-10-22] MEDS: PANTOPRAZOLE 40 MG TAB PO SCH (08:51)
[2019-10-22] MEDS: INSULIN LISPRO 100 UNIT/ML SUB-Q SCH ×4 (09:29→22:00)
[2019-10-22] MEDS: FERROUS SULFATE 325 MG TAB PO SCH (10:49)
[2019-10-22] MEDS: APIXABAN 2.5 MG TAB PO SCH ×2 (10:49→21:22)
[2019-10-22] MEDS: GABAPENTIN 300 MG CAP PO SCH (20:36)
--- NOTE | 2019-10-22 21:32 | IRU Plan of Care ---
Interdisciplinary Plan of Care - IP IRU INTERDISCIPLINARY PLAN: [facility] Inpatient Rehab Unit Plan of Care IRU Interdisciplinary Care Plan Start: 10/19/19 17:59 Freq: Admission then PRN Status: Active Protocol: Document 10/22/19 19:47 TH (Rec: 10/22/19 19:52 TH [id number]) Interdisciplinary Problem List Interdisciplinary Problem List Interdisciplinary Problem List Impaired Bathing/Grooming, Query Text:Answers will Trigger Problems Impaired Dressing,Impaired and Outcomes on Worklist. Mobility,Impaired Transfers, Impaired Skin/Tissue Integrity ,Discharge Concerns,Impaired Home Management,Impaired Safety IRU Interdisciplinary Care Plan Therapy Services Therapy Services Will Include: Physical Therapy,Occupational Query Text:Patient will be seen for a Therapy minimum of 3 hours of daily therapy 5 out of 7 days a week. Therapy intensity may be adjusted within a 7 consecutive day period to effectively serve the individual needs of the patient. Treatment Frequency/Intensity/Duration Treatment Frequency 5 days per week Treatment Intensity 3 hours per day Treatment Duration 14-18 days Problem Area: Eating/Swallowing Eating/Swallowing Outcomes Eating/Swallowing Interventions Problem Area: Bathing/Grooming Bathing/Grooming Outcomes Improve [place] w/ Grooming,Improve [place] w/ Bathing Bathing/Grooming Interventions ADL Training,Use of Assistive Devices,Therapeutic Exercise, Therapeutic Activity, Neuromuscular Re-Education, Balance Work,Activity Tolerance Work,Patient/ Caregiver Education Problem Area: Dressing Dressing Outcomes Improve [place] w/ UB Dressing,Improve [place] w/ LB Dressing Dressing Interventions ADL Training,Use of Assistive Devices,Neuromuscular Re- Education,Therapeutic Exercise ,Balance Work,Modalities, Patient/Caregiver Education Problem Area: Mobility Mobility Outcomes Improve [place] w/ Bed Mobility,Improve [place] w/ Ambulation,Improve [place] w/ Stairs/Curb, Improve [place] w/ Wheelchair Mobility Interventions Therapeutic Exercise,Visual/ Perceptual Training,Activity Tolerance Work,Modalities,Use of Assistive Devices,Patient/ Caregiver Education,Bed Mobility Work,W/C Mobility Work Problem Area: Transfers Transfers Outcomes Improve [place] w/ Bed Transfers,Improve [place] w/ Toilet Transfers Transfers Interventions Transfer Training,Therapeutic Exercise,Neuromuscular Re- Education,Visual/Perceptual Training,Activity Tolerance Work,Use of Assistive Devices, Patient/Caregiver Education Problem Area: Bowel/Bladder Managment Bowel/Bladder Outcomes Bowel/Bladder Interventions Problem Area: Toileting Toileting Outcomes Improve [place] w/ Toileting Toileting Interventions ADL Training,Balance Work,Use of Assistive Devices,Patient/ Caregiver Education Problem Area: Nutrition Nutrition Outcomes Nutrition Interventions Problem Area: Comprehension Comprehension Outcomes Comprehension Interventions Problem Area: Expression Expression Outcomes Expression Interventions Problem Area: Problem Solving Problem Solving Outcomes Improve Problem Solving Problem Solving Interventions Safety Education,Patient/ Caregiver Education Problem Area: Memory Memory Outcomes Memory Interventions Problem Area: Pain Management Pain Management Outcomes Pain Management Interventions Problem Area: Knowledge Deficits Knowledge Deficits Outcomes Knowledge Deficits Interventions Problem Area: Skin/Tissue Integrity Skin/Tissue Integrity Outcomes Exhibit Healing of Wound/ Incision,Demonstrate Understanding of Pressure Relief,Demonstrate Understanding of Self Wound Care Skin/Tissue Integrity Interventions Skin/Wound Care,Pressure Relief Instruction,Dressing Change Education,Positioning/ Turning Problem Area: Social Interaction Social Interaction Outcomes Social Interaction Interventions Problem Area: Adjustment to Disability Adjustment to Disability Outcomes Adjustment to Disability Interventions Problem Area: Discharge Concerns Discharge Concerns Outcomes Discharge w/ Necessary Equipment,Have Home Health/ Outpatient Services Discharge Concerns Interventions Discharge Planning,Equipment Assessment, Acquisition and Placement,Family/Caregiver Conference,Patient/Family/ Caregiver Counseling,Family/ Caregiver Training Problem Area: Community Reintegration Community Reintegration Outcomes Community Reintegration Interventions Problem Area: Home Management Home Management Outcomes Improve [place] w/ Home Management Home Management Interventions Meal Preparation,Clothing Care ,Activity Tolerance Work,House Cleaning,Shopping,Patient/ Caregiver Education Problem Area: Safety Safety Outcomes Provide Safe Environment, Perform Selfcare Safely, Demonstrate Good Safety w/ Transfers/Mobility Safety Interventions Identify Fall Risk,[place] Pt. to Environment,Reduce Environmental Hazards,Neuro Check Assessment,Implement Mechanical Devices, i.e. Chair Alarm (Post Fall Update),Re- Educate Patient/Caregiver for Safety (Post Fall Update) Problem Area: Medication Education Medication Education Outcomes Medication Education Interventions Problem Area: Diabetes Education Diabetes Education Outcomes Demonstrate Knowledge of Resources Availlable in Diabetic Ed. Folder Diabetes Education Interventions Give Pt. Diabetes Education Folder Problem Area: Oxygenation Oxygenation Outcomes Oxygenation Interventions Problem Area: Cardiovascular Cardiovascular Outcomes Cardiovascular Interventions Physician Only Medical Prognosis and Rehabilitation Potential (Completed by Physician) Good rehab potential , good medical prognosis This plan of care has been developed based on the findings from the pre- admission assessment, post admission physician evaluation, information gathered from the assessments from all therapy disciplines and other pertinent clinicians. The plan of care has been reviewed and discussed in collaboration with the interdisciplinary team. The plan of care will be reviewed and updated at least weekly.
[2019-10-23] MEDS: CALCIUM CARB/VIT D3/MINERALS 600 MG/800 UNITS TAB PO SCH (08:16)
[2019-10-23] MEDS: PANTOPRAZOLE 40 MG TAB PO SCH (08:17)
[2019-10-23] MEDS: FERROUS SULFATE 325 MG TAB PO SCH (08:17)
[2019-10-23] MEDS: amLODIPine 10 MG TAB PO SCH (08:17)
[2019-10-23] MEDS: carvediloL 25 MG TAB PO SCH ×2 (08:17→22:34)
[2019-10-23] MEDS: metFORMIN 500 MG TAB PO SCH ×2 (08:17→17:02)
[2019-10-23] MEDS: ASCORBIC ACID 500 MG TAB PO SCH (08:17)
[2019-10-23] MEDS: CYANOCOBALAMIN (VIT B-12) 1000 MCG TAB PO SCH (08:17)
[2019-10-23] MEDS: ASPIRIN EC 81 MG TAB PO SCH (08:17)
[2019-10-23] MEDS: OMEGA-3 FATTY ACIDS/FISH OIL 1 GRAM CAP PO SCH ×2 (08:17→22:41)
[2019-10-23] MEDS: INSULIN LISPRO 100 UNIT/ML SUB-Q SCH ×4 (08:18→22:41)
[2019-10-23] MEDS: APIXABAN 2.5 MG TAB PO SCH ×2 (09:56→22:34)
[2019-10-23] MEDS: GABAPENTIN 300 MG CAP PO SCH (22:34)
[2019-10-24 07:56] LABS: Hematocrit 32.2 % (35.5-45.6); Hemoglobin 10.5 gm/dl (11.8-15.2); Mean Corpuscular HGB Conc 33 % (32-34); Mean Corpuscular Volume 93 fl (84-94); Platelet Count 546 K/mm3 (140-440); Red Blood Count 3.47 M/mm3 (3.65-5.03); Red Cell Distribution Width 17.2 % (13.2-15.2)
[2019-10-24] MEDS: ASCORBIC ACID 500 MG TAB PO SCH (08:09)
[2019-10-24] MEDS: carvediloL 25 MG TAB PO SCH ×2 (08:09→22:38)
[2019-10-24] MEDS: OMEGA-3 FATTY ACIDS/FISH OIL 1 GRAM CAP PO SCH (08:09)
[2019-10-24] MEDS: amLODIPine 10 MG TAB PO SCH (08:09)
[2019-10-24] MEDS: metFORMIN 500 MG TAB PO SCH ×2 (08:09→18:05)
[2019-10-24] MEDS: CYANOCOBALAMIN (VIT B-12) 1000 MCG TAB PO SCH (08:10)
[2019-10-24] MEDS: FERROUS SULFATE 325 MG TAB PO SCH (08:10)
[2019-10-24] MEDS: ASPIRIN EC 81 MG TAB PO SCH (08:10)
[2019-10-24] MEDS: CALCIUM CARB/VIT D3/MINERALS 600 MG/800 UNITS TAB PO SCH (08:10)
[2019-10-24] MEDS: PANTOPRAZOLE 40 MG TAB PO SCH (08:10)
[2019-10-24] MEDS: INSULIN LISPRO 100 UNIT/ML SUB-Q SCH ×5 (08:13→22:40)
[2019-10-24 08:17] LABS: Calcium 8.8 mg/dL (8.4-10.2)
--- NOTE | 2019-10-24 09:40 | Progress Note ---
Subjective Date of service: 10/24/19 Principal diagnosis: Left hip fracture Interval history: 79-year-old male who slipped exiting the shower resulting in left hip and shoulder pain. He was at his vacation home in [place] when this occurred and was transferred to the nearest ER in [place]. Denies hitting his head and once in the ER was found to have a left intertrochanteric fracture on x-ray. He was admitted and underwent repair by IM nail with Dr. Bernabe Valiente on October 07, 2019. There were no surgical complications. He was started on Eliquis for DVT prophylaxis. He is weightbearing as tolerated. He was evaluated by therapy and deemed to be an appropriate candidate for inpatient rehabilitation. Once he was medically stabilized he was transferred back to [place] for rehabilitation. All available medical records have been reviewed. Plan of care was discussed with patient and family. On exam patient states that he has a history of vitamin B-12 deficiency for which he takes an excessive amount of vitamin B12 daily. He also states that he has had an iron deficiency and continues to take iron replacement as well. Will check lab values to ensure that we need to continue with replacement. 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 He does state this is been ongoing for several years and he does drop things at times. Nothing makes it better and use will often times aggravated. He questions whether or not this is coming from the neck possibly or if it is related to his diabetes. A1c is very low and he has b een borderline but this could still be diabetic in nature are very well may be nutritional or peripheral in nature. Discussed with him needing to get a referral for outpatient testing utilizing EMG nerve conduction studies in order to elucidate the issue. We will attempt to draw labs to further work-up. He also states that he does have issues with balance but primarily only when outside on uneven surfaces. Denies using a cane or any other assistive device but states that he has had near falls in the past. Interval History: Patient is participating in therapy and making reasonable progress. Taking rest breaks as needed. +BM. Denies pain, palpitations, dyspnea, cough, N/V, weakness, or joint pain. Left hip fracture: Pain well controlled with medication. No signs of DVT, abnormal swelling, wound dehiscence, infection. Continue weightbearing as tolerated and therapy as noted below. Hypertension: Continues to be elevated. Increase Coreg and monitor. Diabetes: Hemoglobin A1c was 7.0. Continue SSI, metformin and carb controlled diet and adjust as needed. Glucose level fairly well with metformin dose. Anemia: Normocytic anemia with decreased level of iron and normal TIBC and ferritin and elevated folate and vitamin B12. Continue to monitor Dehydration: BUN/creatinine increased, start IV fluids and recheck. 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 Do not have good information or ability to look into historical record. Patient is thinking that part of the ileum as well as colon were taken however his description of the surgery has varied. Vitamin B12 folate are both elevated, iron is slightly decreased. Possible renal disease: Based on laboratory values obtained this morning, do not see any issues with renal function at this point. However the patient does have issues with both diabetes and hypertension so watching his renal function would be a good idea for the patient in the long-term. Neuropathy: Neuropathic pain continues. Will start gabapentin and monitor for improvement. Patient will need to follow-up with either neurology or interventional PMNR who can perform a nerve conduction study and EMG. All records, vitals, labs and medications were reviewed. No other issues per patient, nursing or therapy. Objective - Exam Narrative Exam: MUSCULOSKELETAL SPECIALTY EXAM CONSTITUTIONAL: Well developed, well nourished, appropriately groomed, obese EENT: Hearing intact to louder voice RESPIRATORY: Clear to auscultation bilaterally, no increased work of breathing CARDIOVASCULAR: Mild postsurgical swelling on left lower extremity as expected, otherwise regular Rate/ Rhythm, no swelling, edema or tenderness in BUE or BLE. All extremities warm. GI: + bowel sounds, soft, NTTP, nondistended. Large ventral hernia, reducible, incisional with associated scarring. INTEGUMENTARY: Normal, no lesion, rash, masses or bruising noted in extremities. Abdominal scarring as noted above. MUSCULOSKELETAL: Left IM nail for hip fracture repair, remote left TKA, arthritic changes in hands otherwise BUE and BLE normal without defect, crepitus, subluxation, effusion, or TTP. Left calf slightly swollen but not tender to palpation RUE 4+/5, good ROM, with normal tone. LUE has decreased range of motion due to pain, normal tone,4+/5 RLE 4+/5 good ROM, with normal tone. LLE has decreased range of motion due to pain, normal tone,4+/5 Slight wasting noted right greater than left of the first dorsal interosseous. Pasteurizing Supervisor intact. NEURO: CN 2-12 grossly intact. Sensation intact in all extremities with some decrease in the lower extremities and at the hands. No tremor noted in 4 extremities. POSTURE and GAIT: Sitting posture good. Balance appears reasonable. Gait reasonable with shorter steps, antalgic in nature, no overt loss of balance witnessed. PSYCH: Alert, oriented x3, affect appears normal. Insight appears intact. - Constitutional Vitals: Vital Signs - 12hr 10/23/19 10/24/19 10/24/19 22:34 05:12 06:29 Temperature 98.0 F 97.2 F L 98.2 F Pulse Rate 65 72 Respiratory 20 18 Rate Blood Pressure 127/56 124/62 O2 Sat by Pulse 96 93 Oximetry 10/24/19 10/24/19 07:26 08:09 Temperature 97.9 F Pulse Rate 68 68 Respiratory 18 Rate Blood Pressure 131/66 131/66 O2 Sat by Pulse 93 Oximetry - Allied health notes Allied health notes reviewed: nursing, PT, OT FIMS assessment as documented by PT/OT/ST: Social interaction/Memory/Problem solving Social Interaction FIM Score 7. Complete [place] (Interacts appropriately. Controls temper.) Memory FIM Score 6. Modified [place](Mild difficulty remembering people/routines.) Problem Solving FIM Score 6. Mod. [place] (Mild difficulty or needs more time w/ complex.) Transfers Mode of Locomotion: Wheelchair Bed/Chair/Wheelchair Transfers 5. Supervision (Needs supv. or set-up for FIM Score sliding board, foot rests.) Locomotion- walk/wheelchair Ambulation Distance 50 - Labs CBC & Chem 7: 10/24/19 07:34 10/24/19 07:34 Labs: Laboratory Results - last 72 hr 10/21/19 10/21/19 10/21/19 11:10 16:29 22:20 WBC RBC Hgb Hct MCV MCH MCHC RDW Plt Count Sodium Potassium Chloride Carbon Dioxide Anion Gap BUN Creatinine Estimated GFR BUN/Creatinine Ratio Glucose POC Glucose 154 H 147 H 160 H Calcium 10/22/19 10/22/19 10/22/19 07:53 11:58 16:22 WBC RBC Hgb Hct MCV MCH MCHC RDW Plt Count Sodium Potassium Chloride Carbon Dioxide Anion Gap BUN Creatinine Estimated GFR BUN/Creatinine Ratio Glucose POC Glucose 138 H 117 H 154 H Calcium 10/22/19 10/23/19 10/23/19 22:22 07:50 11:43 WBC RBC Hgb Hct MCV MCH MCHC RDW Plt Count Sodium Potassium Chloride Carbon Dioxide Anion Gap BUN Creatinine Estimated GFR BUN/Creatinine Ratio Glucose POC Glucose 126 H 114 H 159 H Calcium 10/23/19 10/23/19 10/24/19 16:26 22:45 07:34 WBC 5.7 RBC 3.47 L Hgb 10.5 L Hct 32.2 L MCV 93 MCH 30 MCHC 33 RDW 17.2 H Plt Count 546 H Sodium Potassium Chloride Carbon Dioxide Anion Gap BUN Creatinine Estimated GFR BUN/Creatinine Ratio Glucose POC Glucose 133 H 156 H Calcium 10/24/19 10/24/19 07:34 07:38 WBC RBC Hgb Hct MCV MCH MCHC RDW Plt Count Sodium 140 Potassium 4.3 Chloride 104.9 Carbon Dioxide 22 Anion Gap 17 BUN 21 H Creatinine 1.3 Estimated GFR 53 BUN/Creatinine Ratio 16 Glucose 126 H POC Glucose 132 H Calcium 8.8 Assessment and Plan Left hip fracture: Continue therapy as above. Increase mobility as tolerated. Continue to monitor wound with wound team. Weightbearing as tolerated per surgeon's instructions. Eliquis for DVT prophylaxis. Monitor for any signs of wound dehiscence, infection or increasing pain. Hypertension: Continue medications. Monitor blood pressure and adjust medications as needed for normotension. Hold for hypotension Diabetes type 2: Continue carb controlled diet. Continue metformin and SSI and adjust as needed for normoglycemia. A1c 7.0 Dehydration: Start IV fluids and recheck labs. Encourage p.o. 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 Question why he was taking vitamin B12 orally versus injections if he did not have a terminal ileum. Patient states he is only taking vitamin B12 orally and his level is greater than 2000. Uncertain how much of the terminal ileum was resected if any. Did discuss with the patient that based on his lab level he is able to safely reduce his intake of vitamin B12 if he wishes. Anemia: Monitor hemoglobin on a regular basis adjust medications as needed. Patient believes he may have had anemia before but this is likely exacerbated by postsurgical changes as well. Bilateral upper extremity numbness and weakness: We will check lab values. Patient will need further work-up as an outpatient with needle EMG and nerve conduction study. Less likely that this is coming from cervical cause as the patient does not describe any radicular symptoms. Start gabapentin for symptom atic relief. Discussed side effects with the patient Possible renal issue: Reported at outside hospital as a possibility but details were lacking. Patient not real helpful in this regard other than the fact that he thinks he had renal problems. Will monitor renal function and adjust medications as needed if this is indeed the case. ADL dysfunction: OT will work on improving ability to perform ADLs (including assistive devices) to increase independence and decrease caregiver burden and improve functional transfers and mobility training. Difficulty walking: PT will work on gait training and proper use of assistive devices and advance as appropriate to use of stairs and outside ambulation on uneven surfaces. Unsteadiness on feet: PT will work on improving static and dynamic sitting and standing balance as well as proper use of assistive devices to decrease risk of falls. Abnormality of gait: PT will work to improve safety and efficiency of gait through neuromotor training and gait training along with instruction on proper use of assistive devices. Muscle weakness: PT & OT will work on strengthening exercises to improve functional strength including mixture of closed and open kinetic chain exercises. Debility: PT & OT will work on improving overall functional status to improve participation with ADLs, mobility and social involvement. Fatigue: PT & OT will work on improving endurance through aerobic exercises and therapeutic activity while monitoring patients tolerance for activity and vital signs as needed. DVT ppx: Eliquis Pain: Continue physical modalities in therapy and pain medications as needed to achieve functional pain control. Sleep: Monitor and address as needed. Bowel: Monitor and address as needed. Appetite: Monitor and address as needed. Discharge planning: Pending therapy progress and care plan meeting. Will continue discussion with therapy team, SW, patient and family. Restrictions/ Precautions: Falls WB status: FWB Functional Hx: ADLs: Independent Cognition: Independent Mobility: No AD Barriers to Discharge: Decreased mobility and ability to perform self care, balance deficits, weakness, wound care Estimated Length of Stay: 14-18 days days Discharge Destination: Home with family
[2019-10-24] MEDS ORDERED: SODIUM CHLORIDE 0.9% 1000 ML 1,000 ML IV SCH (10:00)
[2019-10-24] MEDS: APIXABAN 2.5 MG TAB PO SCH ×2 (11:03→22:37)
[2019-10-24] MEDS: GABAPENTIN 300 MG CAP PO SCH (22:37)
[2019-10-25] MEDS: ASPIRIN EC 81 MG TAB PO SCH (08:38)
[2019-10-25] MEDS: OMEGA-3 FATTY ACIDS/FISH OIL 1 GRAM CAP PO SCH (08:38)
[2019-10-25] MEDS: ASCORBIC ACID 500 MG TAB PO SCH (08:38)
[2019-10-25] MEDS: CALCIUM CARB/VIT D3/MINERALS 600 MG/800 UNITS TAB PO SCH (08:38)
[2019-10-25] MEDS: amLODIPine 10 MG TAB PO SCH (08:38)
[2019-10-25] MEDS: FERROUS SULFATE 325 MG TAB PO SCH (08:38)
[2019-10-25] MEDS: PANTOPRAZOLE 40 MG TAB PO SCH (08:38)
[2019-10-25] MEDS: CYANOCOBALAMIN (VIT B-12) 1000 MCG TAB PO SCH (08:38)
[2019-10-25] MEDS: metFORMIN 500 MG TAB PO SCH ×2 (08:38→17:46)
[2019-10-25] MEDS: carvediloL 25 MG TAB PO SCH ×2 (08:39→22:37)
[2019-10-25] MEDS: INSULIN LISPRO 100 UNIT/ML SUB-Q SCH ×4 (08:39→22:37)
[2019-10-25] MEDS: APIXABAN 2.5 MG TAB PO SCH ×3 (08:39→22:35)
--- NOTE | 2019-10-25 09:24 | Progress Note ---
Subjective Date of service: 10/25/19 Principal diagnosis: Left hip fracture Interval history: 79-year-old male who slipped exiting the shower resulting in left hip and shoulder pain. He was at his vacation home in [place] when this occurred and was transferred to the nearest ER in [place]. Denies hitting his head and once in the ER was found to have a left intertrochanteric fracture on x-ray. He was admitted and underwent repair by IM nail with Dr. Bernabe Valiente on October 07, 2019. There were no surgical complications. He was started on Eliquis for DVT prophylaxis. He is weightbearing as tolerated. He was evaluated by therapy and deemed to be an appropriate candidate for inpatient rehabilitation. Once he was medically stabilized he was transferred back to [place] for rehabilitation. All available medical records have been reviewed. Plan of care was discussed with patient and family. On exam patient states that he has a history of vitamin B-12 deficiency for which he takes an excessive amount of vitamin B12 daily. He also states that he has had an iron deficiency and continues to take iron replacement as well. Will check lab values to ensure that we need to continue with replacement. 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 He does state this is been ongoing for several years and he does drop things at times. Nothing makes it better and use will often times aggravated. He questions whether or not this is coming from the neck possibly or if it is related to his diabetes. A1c is very low and he has b een borderline but this could still be diabetic in nature are very well may be nutritional or peripheral in nature. Discussed with him needing to get a referral for outpatient testing utilizing EMG nerve conduction studies in order to elucidate the issue. We will attempt to draw labs to further work-up. He also states that he does have issues with balance but primarily only when outside on uneven surfaces. Denies using a cane or any other assistive device but states that he has had near falls in the past. Interval History: Patient is participating in therapy and making reasonable progress. Taking rest breaks as needed. +BM. Denies pain, palpitations, dyspnea, cough, N/V, weakness, or joint pain. Left hip fracture: Pain well controlled with medication. No signs of DVT, abnormal swelling, wound dehiscence, infection. Continue weightbearing as tolerated and therapy as noted below. Hypertension: Improved after increased dosing of Coreg, heart rate tolerating dose adjustment, still has occasional elevations. Continue to monitor and consider further dose adjustments and/or additional medication as needed. Diabetes: Hemoglobin A1c was 7.0. Continue SSI, metformin and carb controlled diet and adjust as needed. Glucose level fairly well with metformin dose. Anemia: Normocytic anemia with decreased level of iron and normal TIBC and ferritin and elevated folate and vitamin B12. Continue to monitor. Regularly takes vitamin B12 and iron at home. Dehydration: Tolerated IV fluids well. Will recheck BMP tomorrow. Blood pressure seems to be well given IV fluids.. 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 Do not have good information or ability to look into historical record. Patient is t hinking that part of the ileum as well as colon were taken however his description of the surgery has varied. Vitamin B12 folate are both elevated, iron is slightly decreased. Possible renal disease: No signs of renal dysfunction based on BMP. We will continue to monitor and consider further work-up as warranted. Will need to follow-up with PCP and/or grey iron molder after discharge. If we do end up starting another antihypertensive will likely go with JAROD inhibitor for renal protective purposes based on hypertension and diabetes history. Neuropathy: Neuropathic pain continues. Tolerating gabapentin and monitor for improvement. Patient will need to follow-up with either neurology or int erventional PMNR who can perform a nerve conduction study and EMG. All records, vitals, labs and medications were reviewed. No other issues per patient, nursing or therapy. Objective - Exam Narrative Exam: MUSCULOSKELETAL SPECIALTY EXAM CONSTITUTIONAL: Well developed, well nourished, appropriately groomed, obese EENT: Hearing intact to louder voice RESPIRATORY: Clear to auscultation bilaterally, no increased work of breathing CARDIOVASCULAR: Mild postsurgical swelling on left lower extremity as expected, otherwise regular Rate/ Rhythm, no swelling, edema or tenderness in BUE or BLE. All extremities warm. GI: + bowel sounds, soft, NTTP, nondistended. Large ventral hernia, reducible, incisional with associated scarring. INTEGUMENTARY: Normal, no lesion, rash, masses or bruising noted in extremities. Abdominal scarring as noted above. MUSCULOSKELETAL: Left IM nail for hip fracture repair, remote left TKA, arthritic changes in hands otherwise BUE and BLE normal without defect, crepitus, subluxation, effusion, or TTP. Left calf slightly swollen but not tender to palpation RUE 4+/5, good ROM, with normal tone. LUE has decreased range of motion due to pain, normal tone,4+/5 RLE 4+/5 good ROM, with normal tone. LLE has decreased range of motion due to pain, normal tone,4+/5 Slight wasting noted right greater than left of the first dorsal interosseous. Build And Release Manager intact. NEURO: CN 2-12 grossly intact. Sensation intact in all extremities with some decrease in the lower extremities and at the hands. No tremor noted in 4 extremities. POSTURE and GAIT: Sitting posture good. Balance appears reasonable. Gait reasonable with shorter steps, antalgic in nature, no overt loss of balance witnessed. PSYCH: Alert, oriented x3, affect appears normal. Insight appears intact. - Constitutional Vitals: Vital Signs - 12hr 10/24/19 10/25/19 10/25/19 22:38 07:46 08:39 Temperature 97.6 F 97.8 F Pulse Rate 65 63 61 Respiratory 20 18 Rate Blood Pressure 135/56 133/54 Blood Pressure 133/54 [Right] O2 Sat by Pulse 97 97 Oximetry - Allied health notes Allied health notes reviewed: nursing, PT, OT FIMS assessment as documented by PT/OT/ST: Social interaction/Memory/Problem solving Social Interaction FIM Score 5. Supervision (Needs supv. <10%. Needs encouragement to participate.) Memory FIM Score 5. Supervision (Needs cueing <10%, stressful/ unfamiliar situations.) Problem Solving FIM Score 5. Supervision (Needs cueing <10% to solve routine problems.) Transfers Mode of Locomotion: Wheelchair Bed/Chair/Wheelchair Transfers 5. Supervision (Needs supv. or set-up for FIM Score sliding board, foot rests.) Locomotion- walk/wheelchair Ambulation Distance 50 - Labs CBC & Chem 7: 10/24/19 07:34 10/24/19 07:34 Labs: Laboratory Results - last 72 hr 10/22/19 10/22/19 10/22/19 11:58 16:22 22:22 WBC RBC Hgb Hct MCV MCH MCHC RDW Plt Count Sodium Potassium Chloride Carbon Dioxide Anion Gap BUN Creatinine Estimated GFR BUN/Creatinine Ratio Glucose POC Glucose 117 H 154 H 126 H Calcium 10/23/19 10/23/19 10/23/19 07:50 11:43 16:26 WBC RBC Hgb Hct MCV MCH MCHC RDW Plt Count Sodium Potassium Chloride Carbon Dioxide Anion Gap BUN Creatinine Estimated GFR BUN/Creatinine Ratio Glucose POC Glucose 114 H 159 H 133 H Calcium 10/23/19 10/24/19 10/24/19 22:45 07:34 07:34 WBC 5.7 RBC 3.47 L Hgb 10.5 L Hct 32.2 L MCV 93 MCH 30 MCHC 33 RDW 17.2 H Plt Count 546 H Sodium 140 Potassium 4.3 Chloride 104.9 Carbon Dioxide 22 Anion Gap 17 BUN 21 H Creatinine 1.3 Estimated GFR 53 BUN/Creatinine Ratio 16 Glucose 126 H POC Glucose 156 H Calcium 8.8 10/24/19 10/24/19 10/24/19 07:38 12:02 16:26 WBC RBC Hgb Hct MCV MCH MCHC RDW Plt Count Sodium Potassium Chloride Carbon Dioxide Anion Gap BUN Creatinine Estimated GFR BUN/Creatinine Ratio Glucose POC Glucose 132 H 104 180 H Calcium 10/24/19 10/25/19 22:52 07:59 WBC RBC Hgb Hct MCV MCH MCHC RDW Plt Count Sodium Potassium Chloride Carbon Dioxide Anion Gap BUN Creatinine Estimated GFR BUN/Creatinine Ratio Glucose POC Glucose 119 H 114 H Calcium Assessment and Plan Left hip fracture: Continue therapy as above. Increase mobility as tolerated. Continue to monitor wound with wound team. Weightbearing as tolerated per surgeon's instructions. Eliquis for DVT prophylaxis. Monitor for any signs of wound dehiscence, infection or increasing pain. Hypertension: Continue medications. Monitor blood pressure and adjust medications as needed for normotension. Hold for hypotension Diabetes type 2: Continue carb controlled diet. Continue metformin and SSI and adjust as needed for normoglycemia. A1c 7.0 Dehydration: Start IV fluids and recheck labs. Encourage p.o. 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 Question why he was taking vitamin B12 orally versus injections if he did not have a terminal ileum. Patient states he is only taking vitamin B12 orally and his level is greater than 2000. Uncertain how much of the terminal ileum was resected if any. Did discuss with the patient that based on his lab level he is able to safely reduce his intake of vitamin B12 if he wishes. Anemia: Monitor hemoglobin on a regular basis adjust medications as needed. Patient believes he may have had anemia before but this is likely exacerbated by postsurgical changes as well. Bilateral upper extremity numbness and weakness: We will check lab values. Patient will need further work-up as an outpatient with needle EMG and nerve conduction study. Less likely that this is coming from cervical cause as the patient does not describe any radicular symptoms. Start gabapentin for symptomatic relief. Discussed side effects with the patient Possible renal issue: Reported at outside hospital as a possibility but details were lacking. Patient not real helpful in this regard other than the fact that he thinks he had renal problems. Will monitor renal function and adjust medications as needed if this is indeed the case. ADL dysfunction: OT will work on improving ability to perform ADLs (including assistive devices) to increase independence and decrease caregiver burden and improve functional transfers and mobility training. Difficulty walking: PT will work on gait training and proper use of assistive devices and advance as appropriate to use of stairs and outside ambulation on uneven surfaces. Unsteadiness on feet: PT will work on improving static and dynamic sitting and standing balance as well as proper use of assistive devices to decrease risk of falls. Abnormality of gait: PT will work to improve safety and efficiency of gait through neuromotor training and gait training along with instruction on proper use of assistive devices. Muscle weakness: PT & OT will work on strengthening exercises to improve functional strength including mixture of closed and open kinetic chain e xercises. Debility: PT & OT will work on improving overall functional status to improve participation with ADLs, mobility and social involvement. Fatigue: PT & OT will work on improving endurance through aerobic exercises and therapeutic activity while monitoring patients tolerance for activity and vital signs as needed. DVT ppx: Eliquis Pain: Continue physical modalities in therapy and pain medications as needed to achieve functional pain control. Sleep: Monitor and address as needed. Bowel: Monitor and address as needed. Appetite: Monitor and address as needed. Discharge planning: Pending therapy progress and care plan meeting. Will continue discussion with therapy team, SW, patient and family. Restrictions/ Precautions: Falls WB status: FWB Functional Hx: ADLs: Independent Cognition: Independent Mobility: No AD Barriers to Discharge: Decreased mobility and ability to perform self care, balance deficits, weakness, wound care Estimated Length of Stay: 14-18 days days Discharge Destination: Home with family
[2019-10-25] MEDS: GABAPENTIN 300 MG CAP PO SCH (22:35)
[2019-10-26 08:53] LABS: BUN/Creatinine Ratio 16; Blood Urea Nitrogen 16 mg/dL (9-20); Calcium 9.2 mg/dL (8.4-10.2); Hemolysis Index 42
[2019-10-26] MEDS: metFORMIN 500 MG TAB PO SCH ×2 (09:17→17:22)
[2019-10-26] MEDS: ASCORBIC ACID 500 MG TAB PO SCH (09:17)
[2019-10-26] MEDS: OMEGA-3 FATTY ACIDS/FISH OIL 1 GRAM CAP PO SCH (09:17)
[2019-10-26] MEDS: PANTOPRAZOLE 40 MG TAB PO SCH (09:17)
[2019-10-26] MEDS: CYANOCOBALAMIN (VIT B-12) 1000 MCG TAB PO SCH (09:17)
[2019-10-26] MEDS: FERROUS SULFATE 325 MG TAB PO SCH (09:17)
[2019-10-26] MEDS: ASPIRIN EC 81 MG TAB PO SCH (09:18)
[2019-10-26] MEDS: CALCIUM CARB/VIT D3/MINERALS 600 MG/800 UNITS TAB PO SCH (09:18)
[2019-10-26] MEDS: amLODIPine 10 MG TAB PO SCH (09:18)
[2019-10-26] MEDS: carvediloL 25 MG TAB PO SCH ×2 (09:18→23:23)
[2019-10-26] MEDS: APIXABAN 2.5 MG TAB PO SCH ×2 (09:19→23:23)
[2019-10-26] MEDS: INSULIN LISPRO 100 UNIT/ML SUB-Q SCH ×4 (09:23→23:30)
--- NOTE | 2019-10-26 11:30 | Progress Note ---
Subjective Date of service: 10/26/19 Principal diagnosis: Left hip fracture Interval history: 79-year-old male who slipped exiting the shower resulting in left hip and shoulder pain. He was at his vacation home in [place] when this occurred and was transferred to the nearest ER in [place]. Denies hitting his head and once in the ER was found to have a left intertrochanteric fracture on x-ray. He was admitted and underwent repair by IM nail with Dr. Bernabe Valiente on October 07, 2019. There were no surgical complications. He was started on Eliquis for DVT prophylaxis. He is weightbearing as tolerated. He was evaluated by therapy and deemed to be an appropriate candidate for inpatient rehabilitation. Once he was medically stabilized he was transferred back to [place] for rehabilitation. All available medical records have been reviewed. Plan of care was discussed with patient and family. On exam patient states that he has a history of vitamin B-12 deficiency for which he takes an excessive amount of vitamin B12 daily. He also states that he has had an iron deficiency and continues to take iron replacement as well. Will check lab values to ensure that we need to continue with replacement. 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 He does state this is been ongoing for several years and he does drop things at times. Nothing makes it better and use will often times aggravated. He questions whether or not this is coming from the neck possibly or if it is related to his diabetes. A1c is very low and he has b een borderline but this could still be diabetic in nature are very well may be nutritional or peripheral in nature. Discussed with him needing to get a referral for outpatient testing utilizing EMG nerve conduction studies in order to elucidate the issue. We will attempt to draw labs to further work-up. He also states that he does have issues with balance but primarily only when outside on uneven surfaces. Denies using a cane or any other assistive device but states that he has had near falls in the past. Interval History: Patient is participating in therapy and making reasonable progress. Taking rest breaks as needed. +BM. Denies pain, palpitations, dyspnea, cough, N/V, weakness, or joint pain. Left hip fracture: Pain well controlled with medication. No signs of DVT, abnormal swelling, wound dehiscence, infection. Continue weightbearing as tolerated and therapy as noted below. Hypertension: Improved after increased dosing of Coreg, heart rate tolerating dose adjustment, still has occasional elevations. Continue to monitor and consider further dose adjustments and/or additional medication as needed. Diabetes: Hemoglobin A1c was 7.0. Continue SSI, metformin and carb controlled diet and adjust as needed. Glucose level fairly well with metformin dose, will continue to monitor and may opt to increase metformin early next week. Anemia: Normocytic anemia with decreased level of iron and normal TIBC and ferritin and elevated folate and vitamin B12. Continue to monitor. Regularly takes vitamin B12 and iron at home. Dehydration: Renal labs improved. 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 Do not have good information or ability to look into historical record. Patient is thinking that part of the ileum as well as colon were taken however his description of the surgery has varied. Vitamin B12 folate are both elevated, iron is slightly decreased. Possible renal disease: No signs of renal dysfunction based on BMP. We will continue to monitor and consider further work-up as warranted. Will need to follow-up with PCP and/or drums teacher after discharge. If we do end up st arting another antihypertensive will likely go with JAROD inhibitor for renal protective purposes based on hypertension and diabetes history. Neuropathy: Neuropathic pain continues. Tolerating gabapentin and monitor for improvement. Patient will need to follow-up with either neurology or interventi onal PMNR who can perform a nerve conduction study and EMG. All records, vitals, labs and medications were reviewed. No other issues per patient, nursing or therapy. Objective - Exam Narrative Exam: MUSCULOSKELETAL SPECIALTY EXAM CONSTITUTIONAL: Well developed, well nourished, appropriately groomed, obese EENT: Hearing intact to louder voice RESPIRATORY: Clear to auscultation bilaterally, no increased work of breathing CARDIOVASCULAR: Mild postsurgical swelling on left lower extremity as expected, otherwise regula r Rate/ Rhythm, no swelling, edema or tenderness in BUE or BLE. All extremities warm. GI: + bowel sounds, soft, NTTP, nondistended. Large ventral hernia, reducible, incisional with associated scarring. INTEGUMENTARY: Normal, no lesion, rash, masses or bruising noted in extremities. Abdominal scarring as noted above. MUSCULOSKELETAL: Left IM nail for hip fracture repair, remote left TKA, arthritic changes in hands otherwise BUE and BLE normal without defect, crepitus, subluxation, effusi on, or TTP. Left calf slightly swollen but not tender to palpation RUE 4+/5, good ROM, with normal tone. LUE has decreased range of motion due to pain, normal tone,4+/5 RLE 4+/5 good ROM, with normal tone. LLE has decreased range of motion due to pain, normal tone,4+/5 Slight wasting noted right greater than left of the first dorsal interosseous. Donor Relations Coordinator intact. NEURO: CN 2-12 grossly intact. Sensation intact in all extremities with some decrease in the lower extremities and at the hands. No tremor noted in 4 extremities. POSTURE and GAIT: Sitting posture good. Balance appears reasonable. Gait reasonable with shorter steps, antalgic in nature, no overt loss of balance witnessed. PSYCH: Alert, oriented x3, affect appears normal. Insight appears intact. - Constitutional Vitals: Vital Signs - 12hr 10/26/19 10/26/19 10/26/19 00:25 05:12 08:00 Temperature 97.8 F 97.6 F 97.8 F Pulse Rate 70 71 73 Respiratory 17 17 18 Rate Blood Pressure Blood Pressure 114/54 138/68 134/68 [Right] O2 Sat by Pulse 95 94 96 Oximetry 10/26/19 09:18 Temperature Pulse Rate 79 Respiratory Rate Blood Pressure 143/79 Blood Pressure [Right] O2 Sat by Pulse Oximetry - Allied health notes Allied health notes reviewed: nursing, PT, OT FIMS assessment as documented by PT/OT/ST: Social interaction/Memory/Problem solving Social Interaction FIM Score 5. Supervision (Needs supv. <10%. Needs encouragement to participate.) Memory FIM Score 5. Supervision (Needs cueing <10%, stressful/ unfamiliar situations.) Problem Solving FIM Score 5. Supervision (Needs cueing <10% to solve routine problems.) Transfers Mode of Locomotion: Wheelchair Bed/Chair/Wheelchair Transfers 5. Supervision (Needs supv. or set-up for FIM Score sliding board, foot rests.) Locomotion- walk/wheelchair Ambulation Distance 50 - Labs CBC & Chem 7: 10/24/19 07:34 10/26/19 08:22 Labs: Laboratory Results - last 72 hr 10/23/19 10/23/19 10/23/19 11:43 16:26 22:45 WBC RBC Hgb Hct MCV MCH MCHC RDW Plt Count Sodium Potassium Chloride Carbon Dioxide Anion Gap BUN Creatinine Estimated GFR BUN/Creatinine Ratio Glucose POC Glucose 159 H 133 H 156 H Calcium 10/24/19 10/24/19 10/24/19 07:34 07:34 07:38 WBC 5.7 RBC 3.47 L Hgb 10.5 L Hct 32.2 L MCV 93 MCH 30 MCHC 33 RDW 17.2 H Plt Count 546 H Sodium 140 Potassium 4.3 Chloride 104.9 Carbon Dioxide 22 Anion Gap 17 BUN 21 H Creatinine 1.3 Estimated GFR 53 BUN/Creatinine Ratio 16 Glucose 126 H POC Glucose 132 H Calcium 8.8 10/24/19 10/24/19 10/24/19 12:02 16:26 22:52 WBC RBC Hgb Hct MCV MCH MCHC RDW Plt Count Sodium Potassium Chloride Carbon Dioxide Anion Gap BUN Creatinine Estimated GFR BUN/Creatinine Ratio Glucose POC Glucose 104 180 H 119 H Calcium 10/25/19 10/25/19 10/25/19 07:59 12:30 16:25 WBC RBC Hgb Hct MCV MCH MCHC RDW Plt Count Sodium Potassium Chloride Carbon Dioxide Anion Gap BUN Creatinine Estimated GFR BUN/Creatinine Ratio Glucose POC Glucose 114 H 118 H 148 H Calcium 10/25/19 10/26/19 10/26/19 21:03 07:49 08:22 WBC RBC Hgb Hct MCV MCH MCHC RDW Plt Count Sodium 136 L Potassium 4.3 Chloride 102.4 Carbon Dioxide 18 L Anion Gap 20 BUN 16 Creatinine 1.0 Estimated GFR > 60 BUN/Creatinine Ratio 16 Glucose 185 H POC Glucose 157 H 119 H Calcium 9.2 Assessment and Plan Left hip fracture: Continue therapy as above. Increase mobility as tolerated. Continue to monitor wound with wound team. Weightbearing as tolerated per surgeon's instructions. Eliquis for DVT prophylaxis. Monitor for any signs of wound dehiscence, infection or increasing pain. Hypertension: Continue medications. Monitor blood pressure and adjust medications as needed for normotension. Hold for hypotension Diabetes type 2: Continue carb controlled diet. Continue metformin and SSI and adjust as needed for normoglycemia. May need to increase metformin over the next few days. A1c 7.0 Dehydration: Encourage p.o. intake. Responded well to IV fluids. Monitor and repeat as needed. 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 Question why he was taking vitamin B12 orally versus injections if he did not have a terminal ileum. Patient states he is only taking vitamin B12 orally and his level is greater than 2000. Uncertain how much of the terminal ileum was resected if any. Did discuss with the patient that based on his lab level he is able to safely reduce his intake of vitamin B12 if he wishes. Anemia: Monitor hemoglobin on a regular basis adjust medications as needed. Patient believes he may have had anemia before but this is likely exacerbated by postsurgical changes as well. Bilateral upper extremity numbness and weakness: We will check lab values. Patient will need further work-up as an outpatient with needle EMG and nerve conduction study. Less likely that this is coming from cervical cause as the patient does not describe any radicular symptoms. Start gabapentin for symptomatic relief. Discussed side effects with the patient Possible renal issue: Reported at outside hospital as a possibility but details were lacking. Patient not real helpful in this regard other than the fact that he thinks he had renal problems. Will monitor renal function and adjust medications as needed if this is indeed the case. ADL dysfunction: OT will work on improving ability to perform ADLs (including assistive devices) to increase independence and decrease caregiver burden and improve functional transfers and mobility training. Difficulty walking: PT will work on gait training and proper use of assistive devices and advance as appropriate to use of stairs and outside ambulation on uneven surfaces. Unsteadiness on feet: PT will work on improving static and dynamic sitting and standing balance as well as proper use of assistive devices to decrease risk of falls. Abnormality of gait: PT will work to improve safety and efficiency of gait through neuromotor training and gait training along with instruction on proper use of assistive devices. Muscle weakness: PT & OT will work on strengthening exercises to improve functional strength including mixture of closed and open kinetic chain exercises. Debility: PT & OT will work on improving overall functional status to improve participation with ADLs, mobility and social involvement. Fatigue: PT & OT will work on improving endurance through aerobic exercises and therapeutic activity while monitoring patients tolerance for activity and vital signs as needed. DVT ppx: Eliquis Pain: Continue physical modalities in therapy and pain medications as needed to achieve functional pain control. Sleep: Monitor and address as needed. Bowel: Monitor and address as needed. Appetite: Monitor and address as needed. Discharge planning: Pending therapy progress and care plan meeting. Will continue discussion with therapy team, SW, patient and family. Restrictions/ Precautions: Falls WB status: FWB Functional Hx: ADLs: Independent Cognition: Independent Mobility: No AD Barriers to Discharge: Decreased mobility and ability to perform self care, balance deficits, weakness, wound care Estimated Length of Stay: 14-18 days days Discharge Destination: Home with family
[2019-10-26] MEDS: GABAPENTIN 300 MG CAP PO SCH (23:23)
[2019-10-27] MEDS: CYANOCOBALAMIN (VIT B-12) 1000 MCG TAB PO SCH (08:43)
[2019-10-27] MEDS: ASPIRIN EC 81 MG TAB PO SCH (08:43)
[2019-10-27] MEDS: APIXABAN 2.5 MG TAB PO SCH ×3 (08:43→22:19)
[2019-10-27] MEDS: ASCORBIC ACID 500 MG TAB PO SCH (08:43)
[2019-10-27] MEDS: OMEGA-3 FATTY ACIDS/FISH OIL 1 GRAM CAP PO SCH (08:43)
[2019-10-27] MEDS: amLODIPine 10 MG TAB PO SCH (08:43)
[2019-10-27] MEDS: CALCIUM CARB/VIT D3/MINERALS 600 MG/800 UNITS TAB PO SCH (08:43)
[2019-10-27] MEDS: FERROUS SULFATE 325 MG TAB PO SCH (08:43)
[2019-10-27] MEDS: metFORMIN 500 MG TAB PO SCH ×2 (08:43→17:12)
[2019-10-27] MEDS: carvediloL 25 MG TAB PO SCH ×2 (08:43→22:20)
[2019-10-27] MEDS: PANTOPRAZOLE 40 MG TAB PO SCH (08:43)
[2019-10-27] MEDS: INSULIN LISPRO 100 UNIT/ML SUB-Q SCH ×4 (08:44→22:27)
--- NOTE | 2019-10-27 11:47 | Progress Note ---
Subjective Date of service: 10/27/19 Principal diagnosis: Left hip fracture Interval history: 79-year-old male who slipped exiting the shower resulting in left hip and shoulder pain. He was at his vacation home in [place] when this occurred and was transferred to the nearest ER in [place]. Denies hitting his head and once in the ER was found to have a left intertrochanteric fracture on x-ray. He was admitted and underwent repair by IM nail with Dr. Bernabe Valiente on October 07, 2019. There were no surgical complications. He was started on Eliquis for DVT prophylaxis. He is weightbearing as tolerated. He was evaluated by therapy and deemed to be an appropriate candidate for inpatient rehabilitation. Once he was medically stabilized he was transferred back to [place] for rehabilitation. All available medical records have been reviewed. Plan of care was discussed with patient and family. On exam patient states that he has a history of vitamin B-12 deficiency for which he takes an excessive amount of vitamin B12 daily. He also states that he has had an iron deficiency and continues to take iron replacement as well. Will check lab values to ensure that we need to continue with replacement. 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 He does state this is been ongoing for several years and he does drop things at times. Nothing makes it better and use will often times aggravated. He questions whether or not this is coming from the neck possibly or if it is related to his diabetes. A1c is very low and he has b een borderline but this could still be diabetic in nature are very well may be nutritional or peripheral in nature. Discussed with him needing to get a referral for outpatient testing utilizing EMG nerve conduction studies in order to elucidate the issue. We will attempt to draw labs to further work-up. He also states that he does have issues with balance but primarily only when outside on uneven surfaces. Denies using a cane or any other assistive device but states that he has had near falls in the past. Interval History: Patient is participating in therapy and making reasonable progress. Taking rest breaks as needed. +BM. Denies pain, palpitations, dyspnea, cough, N/V, weakness, or joint pain. Left hip fracture: Pain well controlled with medication. No signs of DVT, abnormal swelling, wound dehiscence, infection. Continue weightbearing as tolerated and therapy as noted below. Leda removed today. Called orthopedic group that patient has prior relationship with and set up an appointment for follow-up with Dr. Sandy at the [place] office on November 09, 2019 at 9:30 AM. Hypertension: Improved after increased dosing of Coreg, heart rate tolerating dose adjustment, still has occasional elevations. Continue to monitor and consider further dose adjustments and/or additional medication as needed. Diabetes: Hemoglobin A1c was 7.0. Continue SSI, metformin and carb controlled diet and adjust as needed. Glucose level fairly well with metformin dose, will continue to monitor and may opt to increase metformin early next week. Anemia: Normocytic anemia with decreased level of iron and normal TIBC and ferritin and elevated folate and vitamin B12. Continue to monitor. Regularly takes vitamin B12 and iron at home. Dehydration: Renal labs improved. 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 Do not have good information or ability to look into historical record. Patient is thinking that part of the ileum as well as colon were taken however his description of the surgery has varied. Vitamin B12 folate are both elevated, iron is slightly decreased. Possible renal disease: No signs of renal dysfunction based on BMP. We will continue to monitor and consider further work-up as warranted. Will need to follow-up with PCP and/or wireworker after discharge. If we do end up starti ng another antihypertensive will likely go with JAROD inhibitor for renal protective purposes based on hypertension and diabetes history. Neuropathy: Neuropathic pain continues. Tolerating gabapentin and monitor for improvement. Patient will need to follow-up with either neurology or interventional PMNR who can perform a nerve conduction study and EMG. All records, vitals, labs and medications were reviewed. No other issues per patient, nursing or therapy. Patient discussed during team conference. Making good progress with PT and OT. Patient will need a rolling walker and a 3 in 1. Improving his ability to be as independent as possible in order to prepare him for an eventual return to work. Shoulder pain and range of motion improving. Plan to discharge next Thursday. Objective - Exam Narrative Exam: MUSCULOSKELETAL SPECIALTY EXAM CONSTITUTIONAL: Well developed, well nourished, appropriately groomed, obese EENT: Hearing intact to louder voice RESPIRATORY: Clear to auscultation bilaterally, no increased work of breathing CARDIOVASCULAR: Mild postsurgical swelling on left lower extremity as expected, otherwise regular Rate/ Rhythm, no swelling, edema or tenderness in BUE or BLE. All extremities warm. GI: + bowel sounds, soft, NTTP, nondistended. Large ventral hernia, reducible, incisional with associated scarring. INTEGUMENTARY: Normal, no lesion, rash, masses or bruising noted in extremities. Abdominal scarring as noted above. MUSCULOSKELETAL: Left IM nail for hip fracture repair, remote left TKA, arthritic changes in hands otherwise BUE and BLE normal without defect, crepitus, subluxation, effusion, or TTP. Left calf slightly swollen but not tender to palpation RUE 4+/5, good ROM, with normal tone. LUE has decreased range of motion due to pain, normal tone,4+/5 RLE 4+/5 good ROM, with normal tone. LLE has decreased range of motion due to pain, normal tone,4+/5 Slight wasting noted right greater than left of the first dorsal interosseous. Driver Guide intact. NEURO: CN 2-12 grossly intact. Sensation intact in all extremities with some decrease in the lower extremities and at the hands. No tremor noted in 4 extremities. POSTURE and GAIT: Sitting posture good. Balance appears reasonable. Gait reasonable with shorter steps, antalgic in nature, no overt loss of balance witnessed. PSYCH: Alert, oriented x3, affect appears normal. Insight appears intact. - Constitutional Vitals: Vital Signs - 12hr 10/27/19 10/27/19 10/27/19 05:57 07:52 08:43 Temperature 97.9 F 98.4 F Pulse Rate 74 75 75 Respiratory 20 19 Rate Blood Pressure 162/80 147/75 Blood Pressure 147/75 [Right] O2 Sat by Pulse 95 97 Oximetry - Allied health notes Allied health notes reviewed: nursing, PT, OT FIMS assessment as documented by PT/OT/ST: Social interaction/Memory/Problem solving Social Interaction FIM Score 5. Supervision (Needs supv. <10%. Needs encouragement to participate.) Memory FIM Score 5. Supervision (Needs cueing <10%, stressful/ unfamiliar situations.) Problem Solving FIM Score 5. Supervision (Needs cueing <10% to solve routine problems.) Transfers Mode of Locomotion: Wheelchair Bed/Chair/Wheelchair Transfers 5. Supervision (Needs supv. or set-up for FIM Score sliding board, foot rests.) Locomotion- walk/wheelchair Ambulation Distance 50 - Labs CBC & Chem 7: 10/24/19 07:34 10/26/19 08:22 Labs: Laboratory Results - last 72 hr 10/24/19 10/24/19 10/24/19 12:02 16:26 22:52 Sodium Potassium Chloride Carbon Dioxide Anion Gap BUN Creatinine Estimated GFR BUN/Creatinine Ratio Glucose POC Glucose 104 180 H 119 H Calcium 10/25/19 10/25/19 10/25/19 07:59 12:30 16:25 Sodium Potassium Chloride Carbon Dioxide Anion Gap BUN Creatinine Estimated GFR BUN/Creatinine Ratio Glucose POC Glucose 114 H 118 H 148 H Calcium 10/25/19 10/26/19 10/26/19 21:03 07:49 08:22 Sodium 136 L Potassium 4.3 Chloride 102.4 Carbon Dioxide 18 L Anion Gap 20 BUN 16 Creatinine 1.0 Estimated GFR > 60 BUN/Creatinine Ratio 16 Glucose 185 H POC Glucose 157 H 119 H Calcium 9.2 10/26/19 10/26/19 10/26/19 11:38 16:15 21:13 Sodium Potassium Chloride Carbon Dioxide Anion Gap BUN Creatinine Estimated GFR BUN/Creatinine Ratio Glucose POC Glucose 118 H 189 H 120 H Calcium 10/27/19 10/27/19 07:18 11:32 Sodium Potassium Chloride Carbon Dioxide Anion Gap BUN Creatinine Estimated GFR BUN/Creatinine Ratio Glucose POC Glucose 115 H 99 Calcium Assessment and Plan Left hip fracture: Continue therapy as above. Increase mobility as tolerated. Continue to monitor wound with wound team. Weightbearing as tolerated per surgeon's instructions. Eliquis for DVT prophylaxis. Monitor for any signs of wound dehiscence, infection or increasing pain. Leda have been removed. Hypertension: Continue medications. Monitor blood pressure and adjust medications as needed for normotension. Hold for hypotension Diabetes type 2: Continue carb controlled diet. Continue metformin and SSI and adjust as needed for normoglycemia. May need to increase metformin over the next few days. A1c 7.0 Dehydration: Encourage p.o. intake. Responded well to IV fluids. Monitor and repeat as needed. 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 Question why he was taking vitamin B12 orally versus injections if he did not have a terminal ileum. Patient states he is only taking vitamin B12 orally and his level is greater than 2000. Uncertain how much of the terminal ileum was resected if any. Did discuss with the patient that based on his lab level he is able to safely reduce his intake of vitamin B12 if he wishes. Anemia: Monitor hemoglobin on a regular basis adjust medications as needed. Patient believes he may have had anemia before but this is likely exacerbated by postsurgical changes as well. Bilateral upper extremity numbness and weakness: We will check lab values. Patient will need further work-up as an outpatient with needle EMG and nerve conduction study. Less likely that this is coming from cervical cause as the patient does not describe any radicular symptoms. Start gabapentin for symptomatic relief. Discussed side effects with the patient Possible renal issue: Reported at outside hospital as a possibility but details were lacking. Patient not real helpful in this regard other than the fact that he thinks he had renal problems. Will monitor renal function and adjust medications as needed if this is indeed the case. ADL dysfunction: OT will work on improving ability to perform ADLs (including assistive devices) to increase independence and decrease caregiver burden and improve functional transfers and mobility training. Difficulty walking: PT will work on gait training and proper use of assistive devices and advance as appropriate to use of stairs and outside ambulation on uneven surfaces. Unsteadiness on feet: PT will work on improving static and dynamic sitting and standing balance as well as proper use of assistive devices to decrease risk of falls. Abnormality of gait: PT will work to improve safety and efficiency of gait through neuromotor training and gait training along with instruction on proper use of assistive devices. Muscle weakness: PT & OT will work on strengthening exercises to improve functional strength including mixture of closed and open kinetic chain exercises. Debility: PT & OT will work on improving overall functional status to improve participation with ADLs, mobility and social involvement. Fatigue: PT & OT will work on improving endurance through aerobic exercises and therapeutic activity while monitoring patients tolerance for activity and vital signs as needed. DVT ppx: Eliquis Pain: Continue physical modalities in therapy and pain medications as needed to achieve functional pain control. Sleep: Monitor and address as needed. Bowel: Monitor and address as needed. Appetite: Monitor and address as needed. Discharge planning: Pending therapy progress and care plan meeting. Will continue discussion with therapy team, SW, patient and family. Restrictions/ Precautions: Falls WB status: FWB Functional Hx: ADLs: Independent Cognition: Independent Mobility: No AD Barriers to Discharge: Decreased mobility and ability to perform self care, balance deficits, weakness, wound care Estimated Length of Stay: 14-18 days days Discharge Destination: Home with family
[2019-10-27] MEDS: GABAPENTIN 300 MG CAP PO SCH (22:19)
[2019-10-28] MEDS: OMEGA-3 FATTY ACIDS/FISH OIL 1 GRAM CAP PO SCH (08:02)
[2019-10-28] MEDS: APIXABAN 2.5 MG TAB PO SCH ×3 (08:02→21:20)
[2019-10-28] MEDS: ASPIRIN EC 81 MG TAB PO SCH (08:02)
[2019-10-28] MEDS: CALCIUM CARB/VIT D3/MINERALS 600 MG/800 UNITS TAB PO SCH (08:02)
[2019-10-28] MEDS: PANTOPRAZOLE 40 MG TAB PO SCH (08:03)
[2019-10-28] MEDS: amLODIPine 10 MG TAB PO SCH (08:03)
[2019-10-28] MEDS: carvediloL 25 MG TAB PO SCH ×2 (08:03→21:20)
[2019-10-28] MEDS: ASCORBIC ACID 500 MG TAB PO SCH (08:03)
[2019-10-28] MEDS: metFORMIN 500 MG TAB PO SCH ×2 (08:03→17:32)
[2019-10-28] MEDS: FERROUS SULFATE 325 MG TAB PO SCH (08:03)
[2019-10-28] MEDS: CYANOCOBALAMIN (VIT B-12) 1000 MCG TAB PO SCH (08:03)
[2019-10-28] MEDS: INSULIN LISPRO 100 UNIT/ML SUB-Q SCH ×4 (08:06→21:23)
--- NOTE | 2019-10-28 12:31 | Progress Note ---
Subjective Date of service: 10/28/19 Principal diagnosis: Left hip fracture Interval history: 79-year-old male who slipped exiting the shower resulting in left hip and shoulder pain. He was at his vacation home in [place] when this occurred and was transferred to the nearest ER in [place]. Denies hitting his head and once in the ER was found to have a left intertrochanteric fracture on x-ray. He was admitted and underwent repair by IM nail with Dr. Bernabe Valiente on October 07, 2019. There were no surgical complications. He was started on Eliquis for DVT prophylaxis. He is weightbearing as tolerated. He was evaluated by therapy and deemed to be an appropriate candidate for inpatient rehabilitation. Once he was medically stabilized he was transferred back to [place] for rehabilitation. All available medical records have been reviewed. Plan of care was discussed with patient and family. On exam patient states that he has a history of vitamin B-12 deficiency for which he takes an excessive amount of vitamin B12 daily. He also states that he has had an iron deficiency and continues to take iron replacement as well. Will check lab values to ensure that we need to continue with replacement. 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 He does state this is been ongoing for several years and he does drop things at times. Nothing makes it better and use will often times aggravated. He questions whether or not this is coming from the neck possibly or if it is related to his diabetes. A1c is very low and he has b een borderline but this could still be diabetic in nature are very well may be nutritional or peripheral in nature. Discussed with him needing to get a referral for outpatient testing utilizing EMG nerve conduction studies in order to elucidate the issue. We will attempt to draw labs to further work-up. He also states that he does have issues with balance but primarily only when outside on uneven surfaces. Denies using a cane or any other assistive device but states that he has had near falls in the past. Interval History: Patient is participating in therapy and making reasonable progress. Taking rest breaks as needed. +BM. Denies pain, palpitations, dyspnea, cough, N/V, weakness, or joint pain. Left hip fracture: Pain well controlled with medication. No signs of DVT, abnormal swelling, wound dehiscence, infection. Continue weightbearing as tolerated and therapy as noted below. Leda removed. ---Called orthopedic group that patient has prior relationship with and set up an appointment for follow-up with Dr. Sandy at the [place] office on November 09, 2019 at 9:30 AM. Hypertension: Improved after increased dosing of Coreg, heart rate tolerating dose adjustment, still has occasional elevations. Continue to monitor and consider further dose adjustments and/or additional medication as needed. Diabetes: Hemoglobin A1c was 7.0. Continue SSI, metformin and carb controlled diet and adjust as needed. Glucose level fairly well with metformin dose, will continue to monitor and may opt to increase metformin early next week. Anemia: Normocytic anemia with decreased level of iron and normal TIBC and ferritin and elevated folate and vitamin B12. Continue to monitor. Regularly takes vitamin B12 and iron at home. Dehydration: Renal labs improved. 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 Do not have good information or ability to look into historical record. Patient is thinking that part of the ileum as well as colon were taken however his description of the surgery has varied. Vitamin B12 folate are both elevated, iron is slightly decreased. Possible renal disease: No signs of renal dysfunction based on BMP. We will continue to monitor and consider further work-up as warranted. Will need to follow-up with PCP and/or rehab nursing tech after discharge. If we do end up starting another antihypertensive will likely go with JAROD inhibitor for renal protective purposes based on hypertension and diabetes history. Neuropathy: Neuropathic pain continues. Tolerating gabapentin and monitor for improvement. Patient will need to follow-up with either neurology or interventional PMNR who can perform a nerve conduction study and EMG. All records, vitals, labs and medications were reviewed. No other issues per patient, nursing or therapy. Objective - Exam Narrative Exam: MUSCULOSKELETAL SPECIALTY EXAM CONSTITUTIONAL: Well developed, well nourished, appropriately groomed, obese EENT: Hearing intact to louder voice RESPIRATORY: Clear to auscultation bilaterally, no increased work of breathing CARDIOVASCULAR: Mild postsurgical swelling on left lower extremity as expected, otherwise regular Rate/ Rhythm, no swelling, edema or tenderness in BUE or BLE. All extremities warm. Homans sign negative, nontender to palpation on left calf. No signs of bleeding or blood loss. GI: + bowel sounds, soft, NTTP, nondistended. Large ventral hernia, reducible, incisional with associated scarring. INTEGUMENTARY: Normal, no lesion, rash, masses or bruising noted in extremities. Abdominal scarring as noted above. MUSCULOSKELETAL: Left IM nail for hip fracture repair, remote left TKA, arthritic changes in hands otherwise BUE and BLE normal without defect, crepitus, subluxation, effusion, or TTP. Left calf slightly swollen but not tender to palpation RUE 4+/5, good ROM, with normal tone. LUE has decreased range of motion due to pain, normal tone,4+/5 RLE 4+/5 good ROM, with normal tone. LLE has decreased range of motion due to pain, normal tone,4+/5 Slight wasting noted right greater than left of the first dorsal interosseous. [employer] intact. NEURO: CN 2-12 grossly intact. Sensation intact in all extremities with some decrease in the lower extremities and at the hands. No tremor noted in 4 extremities. POSTURE and GAIT: Sitting posture good. Balance appears reasonable. Gait reasonable with shorter steps, antalgic in nature, no overt loss of balance witnessed. PSYCH: Alert, oriented x3, affect appears normal. Insight appears intact. - Constitutional Vitals: Vital Signs - 12hr 10/28/19 10/28/19 10/28/19 04:29 07:24 11:53 Temperature 97.8 F 98.3 F 98.1 F Pulse Rate 73 72 78 Respiratory 17 18 20 Rate Blood Pressure 121/56 Blood Pressure 134/64 128/62 [Right] O2 Sat by Pulse 93 92 93 Oximetry - Allied health notes Allied health notes reviewed: nursing, PT, OT FIMS assessment as documented by PT/OT/ST: Social interaction/Memory/Problem solving Social Interaction FIM Score 5. Supervision (Needs supv. <10%. Needs encouragement to participate.) Memory FIM Score 6. Modified [place](Mild difficulty remembering people/routines.) Problem Solving FIM Score 5. Supervision (Needs cueing <10% to solve routine problems.) Transfers Mode of Locomotion: Wheelchair Bed/Chair/Wheelchair Transfers 5. Supervision (Needs supv. or set-up for FIM Score sliding board, foot rests.) Locomotion- walk/wheelchair Ambulation Distance 50 - Labs CBC & Chem 7: 10/24/19 07:34 10/26/19 08:22 Labs: Laboratory Results - last 72 hr 10/25/19 10/25/19 10/26/19 16:25 21:03 07:49 Sodium Potassium Chloride Carbon Dioxide Anion Gap BUN Creatinine Estimated GFR BUN/Creatinine Ratio Glucose POC Glucose 148 H 157 H 119 H Calcium 10/26/19 10/26/19 10/26/19 08:22 11:38 16:15 Sodium 136 L Potassium 4.3 Chloride 102.4 Carbon Dioxide 18 L Anion Gap 20 BUN 16 Creatinine 1.0 Estimated GFR > 60 BUN/Creatinine Ratio 16 Glucose 185 H POC Glucose 118 H 189 H Calcium 9.2 10/26/19 10/27/19 10/27/19 21:13 07:18 11:32 Sodium Potassium Chloride Carbon Dioxide Anion Gap BUN Creatinine Estimated GFR BUN/Creatinine Ratio Glucose POC Glucose 120 H 115 H 99 Calcium 10/27/19 10/27/19 10/28/19 16:38 21:03 07:12 Sodium Potassium Chloride Carbon Dioxide Anion Gap BUN Creatinine Estimated GFR BUN/Creatinine Ratio Glucose POC Glucose 150 H 150 H 115 H Calcium 10/28/19 11:52 Sodium Potassium Chloride Carbon Dioxide Anion Gap BUN Creatinine Estimated GFR BUN/Creatinine Ratio Glucose POC Glucose 115 H Calcium Assessment and Plan Left hip fracture: Continue therapy as above. Increase mobility as tolerated. Continue to monitor wound with wound team. Weightbearing as tolerated per surgeon's instructions. Eliquis for DVT prophylaxis. Monitor for any signs of wound dehiscence, infection or increasing pain. Leda have been removed. Mild postop swelling in operative extremity without signs of DVT. Hypertension: Continue medications. Monitor blood pressure and adjust medications as needed for normotension. Hold for hypotension Diabetes type 2: Continue carb controlled diet. Continue metformin and SSI and adjust as needed for normoglycemia. May need to increase metformin over the next few days. A1c 7.0 Dehydration: Encourage p.o. intake. Responded well to IV fluids. Monitor and repeat as needed. 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 Question why he was taking vitamin B12 orally versus injections if he did not have a terminal ileum. Patient states he is only taking vitamin B12 orally and his level is greater than 2000. Uncertain how much of the terminal ileum was resected if any. Did discuss with the patient that based on his lab level he is able to safely reduce his intake of vitamin B12 if he wishes. Anemia: Monitor hemoglobin on a regular basis adjust medications as needed. Patient believes he may have had anemia before but this is likely exacerbated by postsurgical changes as well. Bilateral upper extremity numbness and weakness: We will check lab values. Patient will need further work-up as an outpatient with needle EMG and nerve c onduction study. Less likely that this is coming from cervical cause as the patient does not describe any radicular symptoms. Start gabapentin for symptomatic relief. Discussed side effects with the patient Possible renal issue: Reported at outside hospital as a possibility but details were lacking. Patient not real helpful in this regard other than the fact that he thinks he had renal problems. Will monitor renal function and adjust medications as needed if this is indeed the case. ADL dysfunction: OT will work on improving ability to perform ADLs (including assistive devices) to increase independence and decrease caregiver burden and improve functional transfers and mobility training. Difficulty walking: PT will work on gait training and proper use of assistive devices and advance as appropriate to use of stairs and outside ambulation on uneven surfaces. Unsteadiness on feet: PT will work on improving static and dynamic sitting and standing balance as well as proper use of assistive devices to decrease risk of falls. Abnormality of gait: PT will work to improve safety and efficiency of gait through neuromotor training and gait training along with instruction on proper u se of assistive devices. Muscle weakness: PT & OT will work on strengthening exercises to improve f unctional strength including mixture of closed and open kinetic chain exercises. Debility: PT & OT will work on improving overall functional status to improve participation with ADLs, mobility and social involvement. Fatigue: PT & OT will work on improving endurance through aerobic exercises and therapeutic activity while monitoring patients tolerance for activity and vital signs as needed. DVT ppx: Eliquis Pain: Continue physical modalities in therapy and pain medications as needed to achieve functional pain control. Sleep: Monitor and address as needed. Bowel: Monitor and address as needed. Appetite: Monitor and address as needed. Discharge planning: Pending therapy progress and care plan meeting. Will continue discussion with therapy team, SW, patient and family. Discharge home on November 01 Restrictions/ Precautions: Falls WB status: FWB Functional Hx: ADLs: Independent Cognition: Independent Mobility: No AD Barriers to Discharge: Decreased mobility and ability to perform self care, balance deficits, weakness, wound care Estimated Length of Stay: 14-18 days days Discharge Destination: Home with family
[2019-10-28] MEDS: GABAPENTIN 300 MG CAP PO SCH (21:20)
[2019-10-29] MEDS: FERROUS SULFATE 325 MG TAB PO SCH (08:35)
[2019-10-29] MEDS: metFORMIN 500 MG TAB PO SCH ×2 (08:35→16:51)
[2019-10-29] MEDS: OMEGA-3 FATTY ACIDS/FISH OIL 1 GRAM CAP PO SCH (08:35)
[2019-10-29] MEDS: ASCORBIC ACID 500 MG TAB PO SCH (08:35)
[2019-10-29] MEDS: CALCIUM CARB/VIT D3/MINERALS 600 MG/800 UNITS TAB PO SCH (08:35)
[2019-10-29] MEDS: ASPIRIN EC 81 MG TAB PO SCH (08:35)
[2019-10-29] MEDS: CYANOCOBALAMIN (VIT B-12) 1000 MCG TAB PO SCH (08:35)
[2019-10-29] MEDS: carvediloL 25 MG TAB PO SCH ×2 (08:36→21:02)
[2019-10-29] MEDS: PANTOPRAZOLE 40 MG TAB PO SCH (08:36)
[2019-10-29] MEDS: amLODIPine 10 MG TAB PO SCH (08:36)
[2019-10-29] MEDS: APIXABAN 2.5 MG TAB PO SCH ×3 (08:36→21:02)
[2019-10-29] MEDS: INSULIN LISPRO 100 UNIT/ML SUB-Q SCH ×4 (08:38→21:08)
[2019-10-29] MEDS: GABAPENTIN 300 MG CAP PO SCH (21:03)
[2019-10-30] MEDS: OMEGA-3 FATTY ACIDS/FISH OIL 1 GRAM CAP PO SCH (07:44)
[2019-10-30] MEDS: amLODIPine 10 MG TAB PO SCH (07:45)
[2019-10-30] MEDS: ASPIRIN EC 81 MG TAB PO SCH (07:45)
[2019-10-30] MEDS: CALCIUM CARB/VIT D3/MINERALS 600 MG/800 UNITS TAB PO SCH (07:45)
[2019-10-30] MEDS: APIXABAN 2.5 MG TAB PO SCH ×3 (07:45→21:34)
[2019-10-30] MEDS: carvediloL 25 MG TAB PO SCH ×2 (07:45→21:34)
[2019-10-30] MEDS: PANTOPRAZOLE 40 MG TAB PO SCH (07:45)
[2019-10-30] MEDS: metFORMIN 500 MG TAB PO SCH ×2 (07:45→17:08)
[2019-10-30] MEDS: CYANOCOBALAMIN (VIT B-12) 1000 MCG TAB PO SCH (07:45)
[2019-10-30] MEDS: ASCORBIC ACID 500 MG TAB PO SCH (07:45)
[2019-10-30] MEDS: FERROUS SULFATE 325 MG TAB PO SCH (07:46)
[2019-10-30] MEDS: INSULIN LISPRO 100 UNIT/ML SUB-Q SCH ×4 (07:48→21:34)
[2019-10-30] MEDS: GABAPENTIN 300 MG CAP PO SCH (21:34)
--- NOTE | 2019-10-31 07:55 | Progress Note ---
Subjective Date of service: 10/31/19 Principal diagnosis: Left hip fracture Interval history: 79-year-old male who slipped exiting the shower resulting in left hip and shoulder pain. He was at his vacation home in [place] when this occurred and was transferred to the nearest ER in [place]. Denies hitting his head and once in the ER was found to have a left intertrochanteric fracture on x-ray. He was admitted and underwent repair by IM nail with Dr. Bernabe Valiente on October 07, 2019. There were no surgical complications. He was started on Eliquis for DVT prophylaxis. He is weightbearing as tolerated. He was evaluated by therapy and deemed to be an appropriate candidate for inpatient rehabilitation. Once he was medically stabilized he was transferred back to [place] for rehabilitation. All available medical records have been reviewed. Plan of care was discussed with patient and family. On exam patient states that he has a history of vitamin B-12 deficiency for which he takes an excessive amount of vitamin B12 daily. He also states that he has had an iron deficiency and continues to take iron replacement as well. Will check lab values to ensure that we need to continue with replacement. 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 He does state this is been ongoing for several years and he does drop things at times. Nothing makes it better and use will often times aggravated. He questions whether or not this is coming from the neck possibly or if it is related to his diabetes. A1c is very low and he has b een borderline but this could still be diabetic in nature are very well may be nutritional or peripheral in nature. Discussed with him needing to get a referral for outpatient testing utilizing EMG nerve conduction studies in order to elucidate the issue. We will attempt to draw labs to further work-up. He also states that he does have issues with balance but primarily only when outside on uneven surfaces. Denies using a cane or any other assistive device but states that he has had near falls in the past. Interval History: Patient is participating in therapy and making reasonable progress. Taking rest breaks as needed. +BM. Afebrile. Denies pain, palpitations, dyspnea, cough, N/V, weakness, or joint pain. Left hip fracture: Pain well controlled with medication. No signs of DVT, abnormal swelling, wound dehiscence, infection. Continue weightbearing as tolerated and therapy as noted below. [place] removed. ---Called orthopedic group that patient has prior relationship with and set up an appointment for follow-up with Dr. aSndy at the [place] office on November 09, 2019 at 9:30 AM. Hypertension: Blood pressure in good range with current dosing of Coreg. Continue to monitor and consider further dose adjustments and/or additional medication as needed. Diabetes: Hemoglobin A1c was 7.0. Continue SSI, metformin and carb controlled diet and adjust as needed. Glucose level fairly well maintained, increase metformin to 850 mg twice daily. Anemia: Normocytic anemia with decreased level of iron and normal TIBC and ferritin and elevated folate and vitamin B12. Continue to monitor. Regularly takes vitamin B12 and iron at home. Dehydration: Renal labs improved. 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 Do not have good information or ability to look into historical record. Patient is thinking that part of the ileum as well as colon were taken however his description of the surgery has varied. Vitamin B12 folate are both elevated, iron is slightly decreased. Possible renal disease: No signs of renal dysfunction based on BMP. We will continue to monitor and consider further work-up as warranted. Will need to follow-up with PCP and/or supervisor telephone information after discharge. Neuropathy: Neuropathic pain continues, improved slightly. Tolerating gabapentin and monitor for improvement. Patient will need to follow-up with either neurology or interventional PMNR who can perform a nerve conduction study and EMG. All records, vitals, labs and medications were reviewed. No other issues per patient, nursing or therapy. Objective - Exam Narrative Exam: MUSCULOSKELETAL SPECIALTY EXAM CONSTITUTIONAL: Well developed, well nourished, appropriately groomed, obese EENT: Hearing intact to louder voice RESPIRATORY: Clear to auscultation bilaterally, no increased work of breathing CARDIOVASCULAR: Mild postsurgical swelling on left lower extremity as expected but decreased in amount, otherwise regular Rate/ Rhythm, no swelling, edema or tenderness in BUE or BLE. All extremities warm. Nontender to palpation on left calf. No signs of bleeding or blood loss. GI: + bowel sounds, soft, NTTP, nondistended. Large ventral hernia, reducible, incisional with associated scarring. INTEGUMENTARY: Normal, no lesion, rash, masses or bruising noted in extremities. Abdominal scarring as noted above. MUSCULOSKELETAL: Left IM nail for hip fracture repair, remote left TKA, arthritic changes in hands otherwise BUE and BLE normal without defect, crepitus, subluxation, effusion, or TTP. Left calf slightly swollen but not tender to palpation RUE 4+/5, good ROM, with normal tone. LUE has decreased range of motion due to pain, normal tone,4+/5 RLE 4+/5 good ROM, with normal tone. LLE has decreased range of motion due to pain, normal tone,4+/5 Slight wasting noted right greater than left of the first dorsal interosseous. Exchange Mechanic intact. NEURO: CN 2-12 grossly intact. Sensation intact in all extremities with some decrease in the lower extremities and at the hands. No tremor noted in 4 extremities. POSTURE and GAIT: Sitting posture good. Balance appears reasonable. Gait reasonable with shorter steps, antalgic in nature, no overt loss of balance witnessed. PSYCH: Alert, oriented x3, affect appears normal. Insight appears intact. - Constitutional Vitals: Vital Signs - 12hr 10/30/19 10/30/19 10/31/19 21:00 21:34 00:11 Temperature 97.8 F Pulse Rate 62 72 Respiratory 18 17 Rate Blood Pressure 142/68 149/70 Blood Pressure [Right] O2 Sat by Pulse 97 Oximetry 10/31/19 10/31/19 04:37 07:41 Temperature 97.6 F 97.2 F L Pulse Rate 72 70 Respiratory 17 20 Rate Blood Pressure 127/64 Blood Pressure 131/67 [Right] O2 Sat by Pulse 93 93 Oximetry - Allied health notes Allied health notes reviewed: nursing, PT, OT FIMS assessment as documented by PT/OT/ST: Social interaction/Memory/Problem solving Social Interaction FIM Score 6. Mod. [place] (Mostly appropriate. May need meds. No supv.) Memory FIM Score 6. Modified [place](Mild difficulty remembering people/routines.) Problem Solving FIM Score 5. Supervision (Needs cueing <10% to solve routine problems.) Transfers Mode of Locomotion: Wheelchair Bed/Chair/Wheelchair Transfers 5. Supervision (Needs supv. or set-up for FIM Score sliding board, foot rests.) Locomotion- walk/wheelchair Ambulation Distance 50 - Labs CBC & Chem 7: 10/24/19 07:34 10/26/19 08:22 Labs: Laboratory Results - last 72 hr 10/28/19 10/28/19 10/28/19 11:52 16:38 21:26 POC Glucose 115 H 176 H 120 H 10/29/19 10/29/19 10/29/19 07:42 11:23 16:14 POC Glucose 127 H 151 H 125 H 10/29/19 10/30/19 10/30/19 21:20 07:26 11:15 POC Glucose 130 H 103 163 H 10/30/19 10/30/19 10/31/19 16:12 21:05 07:14 POC Glucose 113 H 161 H 123 H Assessment and Plan Left hip fracture: Continue therapy as above. Increase mobility as tolerated. Continue to monitor wound with wound team. Weightbearing as tolerated per surgeon's instructions. Eliquis for DVT prophylaxis. Monitor for any signs of wound dehiscence, infection or increasing pain. [place] have been removed. Mild postop swelling in operative extremity without signs of DVT. Hypertension: Continue medications. Monitor blood pressure and adjust medications as needed for normotension. Hold for hypotension Diabetes type 2: Continue carb controlled diet. Continue metformin (dose increased) and SSI and adjust as needed for normoglycemia. May need to increase metformin over the next few days. A1c 7.0. Will need to follow-up with PCP, this is a new diagnosis for the patient. Dehydration: Encourage p.o. intake. Responded well to IV fluids. Monitor and repeat as needed. Seems to be drinking better. 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 Question why he was taking vitamin B12 orally versus injections if he did not have a terminal ileum. Patient states he is only taking vitamin B12 orally and his level is greater than 2000. Uncertain how much of the terminal ileum was resected if any. Did discuss with the patient that based on his lab level he is able to safely reduce his intake of vitamin B12 if he wishes. Anemia: Monitor hemoglobin on a regular basis adjust medications as needed. Patient believes he may have had anemia before but this is likely exacerbated by postsurgical changes as well. Bilateral upper extremity numbness and weakness: We will check lab values. Patient will need further work-up as an outpatient with needle EMG and nerve conduction study. Less likely that this is coming from cervical cause as the patient does not describe any radicular symptoms. Start gabapentin for symptomatic relief. Discussed side effects with the patient Possible renal issue: Reported at outside hospital as a possibility but details were lacking. Patient not real helpful in this regard other than the fact that he thinks he had renal problems. Will monitor renal function and adjust medications as needed if this is indeed the case. No signs of renal dysfunction noted thus far. ADL dysfunction: OT will work on improving ability to perform ADLs (including assistive devices) to increase independence and decrease caregiver burden and improve functional transfers and mobility training. Difficulty walking: PT will work on gait training and proper use of assistive devices and advance as appropriate to use of stairs and outside ambulation on uneven surfaces. Unsteadiness on feet: PT will work on improving static and dynamic sitting and standing balance as well as proper use of assistive devices to decrease risk of falls. Abnormality of gait: PT will work to improve safety and efficiency of gait through neuromotor training and gait training along with instruction on proper use of assistive devices. Muscle weakness: PT & OT will work on strengthening exercises to improve functional strength including mixture of closed and open kinetic chain exercises. Debility: PT & OT will work on improving overall functional status to improve participation with ADLs, mobility and social involvement. Fatigue: PT & OT will work on improving endurance through aerobic exercises and therapeutic activity while monitoring patients tolerance for activity and vital signs as needed. DVT ppx: Eliquis Pain: Continue physical modalities in therapy and pain medications as needed to achieve functional pain control. Sleep: Monitor and address as needed. Bowel: Monitor and address as needed. Appetite: Monitor and address as needed. Discharge planning: Pending therapy progress and care plan meeting. Will continue discussion with therapy team, SW, patient and family. Discharge home on November 01 Restrictions/ Precautions: Falls WB status: FWB Functional Hx: ADLs: Independent Cognition: Independent Mobility: No AD Barriers to Discharge: Decreased mobility and ability to perform self care, balance deficits, weakness, wound care Estimated Length of Stay: 14-18 days days Discharge Destination: Home with family
[2019-10-31] MEDS: ASCORBIC ACID 500 MG TAB PO SCH (08:50)
[2019-10-31] MEDS: carvediloL 25 MG TAB PO SCH ×2 (08:50→21:30)
[2019-10-31] MEDS: ASPIRIN EC 81 MG TAB PO SCH (08:50)
[2019-10-31] MEDS: CYANOCOBALAMIN (VIT B-12) 1000 MCG TAB PO SCH (08:50)
[2019-10-31] MEDS: FERROUS SULFATE 325 MG TAB PO SCH (08:50)
[2019-10-31] MEDS: PANTOPRAZOLE 40 MG TAB PO SCH (08:50)
[2019-10-31] MEDS: amLODIPine 10 MG TAB PO SCH (08:50)
[2019-10-31] MEDS: metFORMIN 500 MG TAB PO SCH (08:50)
[2019-10-31] MEDS: OMEGA-3 FATTY ACIDS/FISH OIL 1 GRAM CAP PO SCH (08:51)
[2019-10-31] MEDS: CALCIUM CARB/VIT D3/MINERALS 600 MG/800 UNITS TAB PO SCH (08:51)
[2019-10-31] MEDS: INSULIN LISPRO 100 UNIT/ML SUB-Q SCH ×2 (08:54→21:54)
[2019-10-31] MEDS: APIXABAN 2.5 MG TAB PO SCH ×2 (10:51→21:30)
[2019-10-31] MEDS: metFORMIN 850 MG TAB PO SCH (17:07)
[2019-10-31] MEDS: GABAPENTIN 300 MG CAP PO SCH (21:31)
[2019-11-01 07:01] LABS: Hematocrit 35.4 % (35.5-45.6); Hemoglobin 11.5 gm/dl (11.8-15.2); Mean Corpuscular HGB Conc 33 % (32-34); Mean Corpuscular Volume 94 fl (84-94); Platelet Count 357 K/mm3 (140-440); Red Blood Count 3.79 M/mm3 (3.65-5.03); Red Cell Distribution Width 16.1 % (13.2-15.2)
[2019-11-01 07:24] LABS: Calcium 9.2 mg/dL (8.4-10.2)
[2019-11-01] MEDS: metFORMIN 850 MG TAB PO SCH ×2 (08:14→17:47)
[2019-11-01] MEDS: ASPIRIN EC 81 MG TAB PO SCH (08:14)
[2019-11-01] MEDS: ASCORBIC ACID 500 MG TAB PO SCH (08:14)
[2019-11-01] MEDS: CYANOCOBALAMIN (VIT B-12) 1000 MCG TAB PO SCH (08:14)
[2019-11-01] MEDS: CALCIUM CARB/VIT D3/MINERALS 600 MG/800 UNITS TAB PO SCH (08:14)
[2019-11-01] MEDS: amLODIPine 10 MG TAB PO SCH (08:15)
[2019-11-01] MEDS: OMEGA-3 FATTY ACIDS/FISH OIL 1 GRAM CAP PO SCH (08:15)
[2019-11-01] MEDS: FERROUS SULFATE 325 MG TAB PO SCH (08:15)
[2019-11-01] MEDS: APIXABAN 2.5 MG TAB PO SCH ×3 (08:15→22:18)
[2019-11-01] MEDS: PANTOPRAZOLE 40 MG TAB PO SCH (08:15)
[2019-11-01] MEDS: INSULIN LISPRO 100 UNIT/ML SUB-Q SCH ×4 (08:15→22:15)
[2019-11-01] MEDS: carvediloL 25 MG TAB PO SCH ×2 (08:15→22:18)
--- NOTE | 2019-11-01 12:20 | Progress Note ---
Subjective Date of service: 11/01/19 Principal diagnosis: Left hip fracture Interval history: 79-year-old male who slipped exiting the shower resulting in left hip and shoulder pain. He was at his vacation home in [place] when this occurred and was transferred to the nearest ER in [place]. Denies hitting his head and once in the ER was found to have a left intertrochanteric fracture on x-ray. He was admitted and underwent repair by IM nail with Dr. Bernabe Valiente on October 07, 2019. There were no surgical complications. He was started on Eliquis for DVT prophylaxis. He is weightbearing as tolerated. He was evaluated by therapy and deemed to be an appropriate candidate for inpatient rehabilitation. Once he was medically stabilized he was transferred back to [place] for rehabilitation. All available medical records have been reviewed. Plan of care was discussed with patient and family. On exam patient states that he has a history of vitamin B-12 deficiency for which he takes an excessive amount of vitamin B12 daily. He also states that he has had an iron deficiency and continues to take iron replacement as well. Will check lab values to ensure that we need to continue with replacement. 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 He does state this is been ongoing for several years and he does drop things at times. Nothing makes it better and use will often times aggravated. He questions whether or not this is coming from the neck possibly or if it is related to his diabetes. A1c is very low and he has b een borderline but this could still be diabetic in nature are very well may be nutritional or peripheral in nature. Discussed with him needing to get a referral for outpatient testing utilizing EMG nerve conduction studies in order to elucidate the issue. We will attempt to draw labs to further work-up. He also states that he does have issues with balance but primarily only when outside on uneven surfaces. Denies using a cane or any other assistive device but states that he has had near falls in the past. Interval History: Patient is participating in therapy and making reasonable progress. Taking rest breaks as needed. +BM. Afebrile. Denies pain, palpitations, dyspnea, cough, N/V, weakness, or joint pain. Discussed discharge, follow-up with surgeon and home health. Left hip fracture: Pain well controlled with medication. No signs of DVT, abnormal swelling, wound dehiscence, infection. Continue weightbearing as tolerated and therapy as noted below. [place] removed. ---Called orthopedic group that patient has prior relationship with and set up an appointment for follow-up with Dr. Sandy at the [place] office on November 09, 2019 at 9:30 AM. Hypertension: Blood pressure in good range with current dosing of Coreg. Continue to monitor and consider further dose adjustments and/or additional medication as needed. Diabetes: Hemoglobin A1c was 7.0. Continue SSI, metformin and carb controlled diet and adjust as needed. Glucose level fairly well maintained, increase metformin to 850 mg twice daily. Anemia: Normocytic anemia improving with decreased level of iron and normal TIBC and ferritin and elevated folate and vitamin B12. Continue to monitor. Regularly takes vitamin B12 and iron at home. Dehydration: Renal labs improved. 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 Do not have good information or ability to look into historical record. Patient is thinking that part of the ileum as well as colon were taken however his description of the surgery has varied. Vitamin B12 folate are both elevated, iron is slightly decreased. Possible renal disease: No signs of renal dysfunction based on BMP. We will continue to monitor and consider further work-up as warranted. Will need to follow-up with PCP and/or auditing specialist after discharge. Neuropathy: Neuropathic pain continues, improved slightly. Tolerating gabapentin and monitor for improvement. Patient will need to follow-up with either neurology or interventional PMNR who can perform a nerve conduction study and EMG. All records, vitals, labs and medications were reviewed. No other issues per patient, nursing or therapy. Objective - Exam Narrative Exam: MUSCULOSKELETAL SPECIALTY EXAM CONSTITUTIONAL: Well developed, well nourished, appropriately groomed, obese EENT: Hearing intact to louder voice RESPIRATORY: Clear to auscultation bilaterally, no increased work of breathing CARDIOVASCULAR: Mild postsurgical swelling on left lower extremity as expected but decreased in amount, otherwise regular Rate/ Rhythm, no swelling, edema or tenderness in BUE or BLE. All extremities warm. Nontender to palpation on left calf. No signs of bleeding or blood loss. GI: + bowel sounds, soft, NTTP, nondistended. Large ventral hernia, reducible, incisional with associated scarring. INTEGUMENTARY: Normal, no lesion, rash, masses or bruising noted in extremities. Abdominal scarring as noted above. MUSCULOSKELETAL: Left IM nail for hip fracture repair, remote left TKA, arthritic changes in hands otherwise BUE and BLE normal without defect, crepitus, subluxation, effusion, or TTP. Left calf slightly swollen but not tender to palpation RUE 4+/5, good ROM, with normal tone. LUE improved range of motion but still slightly decreased due to pain, normal tone,4+/5 RLE 4+/5 good ROM, with normal tone. LLE has decreased range of motion due to pain, normal tone,4+/5 Slight wasting noted right greater than left of the first dorsal interosseous. Barge Loader intact. NEURO: CN 2-12 grossly intact. Sensation intact in all extremities with some decrease in the lower extremities and at the hands. No tremor noted in 4 extremities. POSTURE and GAIT: Sitting posture good. Balance appears reasonable. Gait reasonable with shorter steps, antalgic in nature, no overt loss of balance witnessed. PSYCH: Alert, oriented x3, affect appears normal. Insight appears intact. - Constitutional Vitals: Vital Signs - 12hr 11/01/19 11/01/19 11/01/19 04:37 07:19 10:00 Temperature 98.7 F 98.2 F Pulse Rate 63 62 Respiratory 20 18 Rate Respiratory 18 Rate [Left Hip] Blood Pressure 150/75 133/70 O2 Sat by Pulse 95 96 Oximetry - Allied health notes Allied health notes reviewed: nursing, PT, OT FIMS assessment as documented by PT/OT/ST: Social interaction/Memory/Problem solving Social Interaction FIM Score 6. Mod. Duchesne (Mostly appropriate. May need meds. No supv.) Memory FIM Score 6. Modified Duchesne(Mild difficulty remembering people/routines.) Problem Solving FIM Score 5. Supervision (Needs cueing <10% to solve routine problems.) Transfers Mode of Locomotion: Wheelchair Bed/Chair/Wheelchair Transfers 5. Supervision (Needs supv. or set-up for FIM Score sliding board, foot rests.) Locomotion- walk/wheelchair Ambulation Distance 50 - Labs CBC & Chem 7: 11/01/19 06:36 11/01/19 06:36 Labs: Laboratory Results - last 72 hr 10/29/19 10/29/19 10/30/19 16:14 21:20 07:26 WBC RBC Hgb Hct MCV MCH MCHC RDW Plt Count Sodium Potassium Chloride Carbon Dioxide Anion Gap BUN Creatinine Estimated GFR BUN/Creatinine Ratio Glucose POC Glucose 125 H 130 H 103 Calcium 10/30/19 10/30/19 10/30/19 11:15 16:12 21:05 WBC RBC Hgb Hct MCV MCH MCHC RDW Plt Count Sodium Potassium Chloride Carbon Dioxide Anion Gap BUN Creatinine Estimated GFR BUN/Creatinine Ratio Glucose POC Glucose 163 H 113 H 161 H Calcium 10/31/19 10/31/19 10/31/19 07:14 11:50 16:39 WBC RBC Hgb Hct MCV MCH MCHC RDW Plt Count Sodium Potassium Chloride Carbon Dioxide Anion Gap BUN Creatinine Estimated GFR BUN/Creatinine Ratio Glucose POC Glucose 123 H 122 H 146 H Calcium 10/31/19 11/01/19 11/01/19 22:05 06:36 06:36 WBC 4.5 RBC 3.79 Hgb 11.5 L Hct 35.4 L MCV 94 MCH 30 MCHC 33 RDW 16.1 H Plt Count 357 Sodium 140 Potassium 4.3 Chloride 104.0 Carbon Dioxide 21 L Anion Gap 19 BUN 21 H Creatinine 1.2 Estimated GFR 58 BUN/Creatinine Ratio 18 Glucose 124 H POC Glucose 124 H Calcium 9.2 11/01/19 11/01/19 07:32 11:12 WBC RBC Hgb Hct MCV MCH MCHC RDW Plt Count Sodium Potassium Chloride Carbon Dioxide Anion Gap BUN Creatinine Estimated GFR BUN/Creatinine Ratio Glucose POC Glucose 120 H 129 H Calcium Assessment and Plan Left hip fracture: Continue therapy as above. Increase mobility as tolerated. Continue to monitor wound with wound team. Weightbearing as tolerated per surgeon's instructions. Eliquis for DVT prophylaxis. Monitor for any signs of wound dehiscence, infection or increasing pain. [place] have been removed. Mild postop swelling in operative extremity without signs of DVT. Hypertension: Continue medications. Monitor blood pressure and adjust medications as needed for normotension. Hold for hypotension Diabetes type 2: Continue carb controlled diet. Continue metformin (dose increased) and SSI and adjust as needed for normoglycemia. May need to increase metformin over the next few days. A1c 7.0. Will need to follow-up with PCP, this is a new diagnosis for the patient. Dehydration: Encourage p.o. intake. Responded well to IV fluids. Monitor and repeat as needed. Seems to be drinking better. 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 Question why he was taking vitamin B12 orally versus injections if he did not have a terminal ileum. Patient states he is only taking vitamin B12 orally and his level is greater than 2000. Uncertain how much of the terminal ileum was resected if any. Did discuss with the patient that based on his lab level he is able to safely reduce his intake of vitamin B12 if he wishes. Anemia: Monitor hemoglobin on a regular basis adjust medications as needed. Patient believes he may have had anemia before but this is likely exacerbated by postsurgical changes as well. Bilateral upper extremity numbness and weakness: Patient will need further work- up as an outpatient with needle EMG and nerve conduction study. Less likely that this is coming from cervical cause. Start gabapentin for symptomatic relief. Discussed side effects with the patient Possible renal issue: Reported at outside hospital as a possibility but details were lacking. Patient not real helpful in this regard other than the fact that he thinks he had renal problems. Will monitor renal function and adjust medications as needed if this is indeed the case. No signs of renal dysfunction noted thus far. ADL dysfunction: OT will work on improving ability to perform ADLs (including assistive devices) to increase independence and decrease caregiver burden and improve functional transfers and mobility training. Difficulty walking: PT will work on gait training and proper use of assistive devices and advance as appropriate to use of stairs and outside ambulation on uneven surfaces. Unsteadiness on feet: PT will work on improving static and dynamic sitting and standing balance as well as proper use of assistive devices to decrease risk of falls. Abnormality of gait: PT will work to improve safety and efficiency of gait through neuromotor training and gait training along with instruction on proper use of assistive devices. Muscle weakness: PT & OT will work on strengthening exercises to improve functional strength including mixture of closed and open kinetic chain exercises. Debility: PT & OT will work on improving overall functional status to improve participation with ADLs, mobility and social involvement. Fatigue: PT & OT will work on improving endurance through aerobic exercises and therapeutic activity while monitoring patients tolerance for activity and vital signs as needed. DVT ppx: Eliquis Pain: Continue physical modalities in therapy and pain medications as needed to achieve functional pain control. Sleep: Monitor and address as needed. Bowel: Monitor and address as needed. Appetite: Monitor and address as needed. Discharge planning: Pending therapy progress and care plan meeting. Will continue discussion with therapy team, SW, patient and family. Discharge home on November 01 Restrictions/ Precautions: Falls WB status: FWB Functional Hx: ADLs: Independent Cognition: Independent Mobility: No AD Barriers to Discharge: Decreased mobility and ability to perform self care, balance deficits, weakness, wound care Estimated Length of Stay: 14-18 days days Discharge Destination: Home with family
[2019-11-01] MEDS: GABAPENTIN 300 MG CAP PO SCH (21:12)
[2019-11-02 08:14] VITALS: BP 117/60
[2019-11-02] MEDS: amLODIPine 10 MG TAB PO SCH (08:48)
[2019-11-02] MEDS: CALCIUM CARB/VIT D3/MINERALS 600 MG/800 UNITS TAB PO SCH (08:48)
[2019-11-02] MEDS: OMEGA-3 FATTY ACIDS/FISH OIL 1 GRAM CAP PO SCH (08:49)
[2019-11-02] MEDS: CYANOCOBALAMIN (VIT B-12) 1000 MCG TAB PO SCH (08:49)
[2019-11-02] MEDS: ASCORBIC ACID 500 MG TAB PO SCH (08:49)
[2019-11-02] MEDS: ASPIRIN EC 81 MG TAB PO SCH (08:49)
[2019-11-02] MEDS: metFORMIN 850 MG TAB PO SCH (08:49)
[2019-11-02] MEDS: carvediloL 25 MG TAB PO SCH (08:49)
[2019-11-02] MEDS: PANTOPRAZOLE 40 MG TAB PO SCH (08:50)
[2019-11-02] MEDS: INSULIN LISPRO 100 UNIT/ML SUB-Q SCH (08:53)
[2019-11-02] MEDS: FERROUS SULFATE 325 MG TAB PO SCH (09:47)
[2019-11-02] MEDS: APIXABAN 2.5 MG TAB PO SCH (09:48)
--- NOTE | 2019-11-02 10:45 | Discharge Summary ---
Providers - Providers Date of Admission: 10/19/19 17:33 Attending physician: NATHANIEL REARDON III, MD 10/19/19 16:13 Occupational Therapy Evaluate and Treat [CONS] Routine Comment: Reason For Exam: ADL dysfunction Physical Therapy Evaluation and Treat [CONS] Routine Comment: Reason For Exam: Mobility Dysfunction 10/19/19 16:25 Consult to Wound/ET Nurse [CONS] Routine Reason For Exam: wound eval 10/19/19 16:28 Consult to Case Management [CONS] Routine Services Needed at Discharge: Home Health Services Notified:: barney notified Primary care physician: CO[employer] MANAGER Hospitalization Reason for admission: Left hip fracture Condition: Good Hospital course: 79-year-old male who slipped exiting the shower resulting in left hip and shoulder pain. He was at his vacation home in [place] when this occurred and was transferred to the nearest ER in [place]. Denies hitting his head and once in the ER was found to have a left intertrochanteric fracture on x-ray. He was admitted and underwent repair by IM nail with Dr. Bernabe Valiente on October 07, 2019. There were no surgical complications. He was started on Eliquis for DVT prophylaxis. He is weightbearing as tolerated. He was evaluated by therapy and deemed to be an appropriate candidate for inpatient rehabilitation. Once he was medically stabilized he was transferred back to [place] for rehabilitation. All available medical records have been reviewed. Plan of care was discussed with patient and family. On exam patient states that he has a history of vitamin B-12 deficiency for which he takes an excessive amount of vitamin B12 daily. He also states that he has had an iron deficiency and continues to take iron replacement as well. Will check lab values to ensure that we need to continue with replacement. 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 He does state this is been ongoing for several years and he does drop things at times. Nothing makes it better and use will often times aggravated. He questions whether or not this is coming from the neck possibly or if it is related to his diabetes. A1c is very low and he has been borderline but this could still be diabetic in nature are very well may be nutritional or peripheral in nature. Discussed with him needing to get a referral for outpatient testing utilizing EMG nerve conduction studies in order to elucidate the issue. We will attempt to draw labs to further work-up. He also states that he does have issues with balance but primarily only when outside on uneven surfaces. Denies using a cane or any other assistive device but states that he has had near falls in the past. Left hip fracture: Weightbearing as tolerated per surgeon's instructions. Eliquis for DVT prophylaxis. Monitor for any signs of wound dehiscence, infection or increasing pain. [place] have been removed. Mild postop swelling in operative extremity without signs of DVT. Continue with therapy with home health. [place] removed. ---Called orthopedic group that patient has prior relationship with and set up an appointment for follow-up with Dr. Sandy at the [place] office on November 09, 2019 at 9:30 AM. Hypertension: Blood pressure in good range with current dosing of Coreg. Monitor blood pressure and adjust medications as needed for normotension. Hold for hypotension Diabetes type 2: Continue carb controlled diet. Continue metformin (dose increased) and adjust as needed for normoglycemia. A1c 7.0. Will need to follow-up with PCP, this is a new diagnosis for the patient. Dehydration: Encourage p.o. intake. Responded well to IV fluids. Anemia: Normocytic anemia improving with decreased level of iron and normal TIBC and ferritin and elevated folate and vitamin B12. Continue to monitor. Regularly takes vitamin B12 and iron at home. Bilateral upper extremity numbness and weakness: Patient will need further work- up as an outpatient with needle EMG and nerve conduction study. Less likely that this is coming from cervical cause. Start gabapentin for symptomatic relief. Discussed side effects with the patient, tolerating well with improvement. Differential diagnosis includes peripheral nerve compression versus polyneuropathy. Tinel's negative at the carpal and cubital tunnels. With observed wasting in musculature of the hands this is likely a long-term problem. 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 Question why he was taking vitamin B12 orally versus injections if he did not have a terminal ileum. Patient states he is only taking vitamin B12 orally and his level is greater than 2000. Uncertain how much of the terminal ileum was resected if any. Did discuss with the patient that based on his lab level he is able to safely reduce his intake of vitamin B12 if he wishes. Possible renal issue: Reported at outside hospital as a possibility but details were lacking. Patient not real helpful in this regard other than the fact that he thinks he had renal problems. Will monitor renal function and adjust medications as needed if this is indeed the case. No signs of renal dysfunction noted thus far. Disposition: [id number]/TX-06 HOME UNDER HOME HL Time spent for discharge: 43mins Core Measure Documentation - Palliative Care Palliative Care/ Comfort Measures: Not Applicable - Core Measures Any of the following diagnoses?: none Exam - Physical Exam Narrative exam: MUSCULOSKELETAL SPECIALTY EXAM CONSTITUTIONAL: Well developed, well nourished, appropriately groomed, obese EENT: Hearing intact to louder voice RESPIRATORY: Clear to auscultation bilaterally, no increased work of breathing CARDIOVASCULAR: Mild postsurgical swelling on left lower extremity as expected but decreased in amount, otherwise regular Rate/ Rhythm, no swelling, edema or tenderness in BUE or BLE. All extremities warm. Nontender to palpation on left calf. No signs of bleeding or blood loss. GI: + bowel sounds, soft, NTTP, nondistended. Large ventral hernia, reducible, incisional with associated scarring. INTEGUMENTARY: Normal, no lesion, rash, masses or bruising noted in extremities. Abdominal scarring as noted above. MUSCULOSKELETAL: Left IM nail for hip fracture repair, remote left TKA, arthritic changes in hands otherwise BUE and BLE normal without defect, crepitus, subluxation, effusion, or TTP. Left calf slightly swollen but not tender to palpation RUE 4+/5, good ROM, with normal tone. LUE improved range of motion but still slightly decreased due to pain, normal tone,4+/5 RLE 4+/5 good ROM, with normal tone. LLE has decreased range of motion due to pain, normal tone,4+/5 Slight wasting noted right greater than left of the first dorsal interosseous. Drug Abuse Counselor intact. NEURO: CN 2-12 grossly intact. Sensation intact in all extremities with some decrease in the lower extremities and at the hands. No tremor noted in 4 extremities. POSTURE and GAIT: Sitting posture good. Balance appears reasonable. Gait reasonable with shorter steps, antalgic in nature, no overt loss of balance witnessed. PSYCH: Alert, oriented x3, affect appears normal. Insight appears intact. - Constitutional Vitals: Temp Pulse Resp BP Pulse Ox 98.5 F 59 L 18 117/60 94 11/02/19 07:34 11/02/19 08:49 11/02/19 07:34 11/02/19 08:49 11/02/19 07:34 Plan Activity: fall precautions Weight Bearing Status: Weight Bear as Tolerated Diet: diabetic (Cardiac/consistent carb) Special Instructions: physical therapy, occupational therapy, home health RN Durable Medical Equipment Needed Upon Discharge: Bedside Commode Additional Instructions: If any increased swelling, redness, tenderness to palpation is noted in the lower extremity or any shortness of breath or tachycardia patient should immediately request evaluation by a physician at the nearest ER as these symptoms may be consistent with a DVT or pulmonary embolus. Take the remainder of Eliquis until completed. Care Plan Goals: Patient will need to follow-up with PCP for new diagnosis of diabetes. He has been started on metformin and seems to be working fairly well for him. Encouraged him to check his blood pressure daily as well and share his blood pressure log with his PCP as well. Also needs to continue to drink plenty of fluids. Would recommend follow-up with CBC and BMP when he sees his PCP. Latest labs as of October 31 include the following: WBCs 4.5, hemoglobin 11.5, hematocrit 35.4, platelets 357. Sodium 140, potassium 4.3, chloride 104, carbon oxide 21, BUN 21, creatinine 1.2, glucose 124. On October 19: A1c 7.0, iron 32, TIBC 252, ferritin 69.4, vitamin B12 greater than 2000, folate greater than 20. Patient will need to follow-up with neurology for further evaluation of bilateral hand wasting and neuropathy. Differential diagnosis includes polyneuropathy versus peripheral nerve compression versus bilateral nerve root compression. Latter 2 options are less likely but cannot be ruled out utilizing nerve conduction study and EMG for further treatment. Symptoms have improved with use of gabapentin, but patient does state that at times he drops items. Follow-up has been made with local orthopedic surgeon Dr. Sandy. This information has been relayed to the patient and family. Surgical note from outside hospital has been faxed to Dr. Sandy's office as well as given to patient. Stop date for Eliquis is November 08, 2019. Follow up with: ANGELIC GLOVER MD [Primary Care Provider] - 7 Days AL SANDY MD [Staff Physician] - 11/09/19 9:30 am ([place] office) Prescriptions: Gabapentin 300 mg PO QHS #30 capsule amLODIPine 10 mg PO QDAY #30 tablet Calcium Carb/Vit D3/Minerals [Caltrate Plus] 1 each PO QDAY #30 tablet carvediloL [Coreg] 25 mg PO BID #60 tablet Apixaban [Eliquis] 2.5 mg PO Q12HR #13 tablet Ferrous Sulfate [Feosol 325 MG tab] 325 mg PO QDAY #30 tablet metFORMIN [Glucophage] 850 mg PO BIDDIAB #60 tablet Aspirin EC [Halfprin EC] 81 mg PO QDAY #30 tablet Pantoprazole [Protonix TAB] 40 mg PO QDAY #30 tablet
== END 2019-11-02 11:45 | disposition home health service (06) | DRG 536 ==
LOC: 3A 12:38 → UNDOADMIN 12:38 → 3B 17:33
PROVIDERS: ADMIT Physical Medicine & Rehabilitation; ATTEND Physical Medicine & Rehabilitation
DX: S72.142A Displaced intertrochanteric fracture of left femur, initial encounter for closed fracture (principal); K91.2 Postsurgical malabsorption, not elsewhere classified; I10 Essential (primary) hypertension; D64.9 Anemia, unspecified; E86.0 Dehydration; R53.81 Other malaise; R26.81 Unsteadiness on feet; E11.40 Type 2 diabetes mellitus with diabetic neuropathy, unspecified; K21.9 Gastro-esophageal reflux disease without esophagitis; I25.10 Atherosclerotic heart disease of native coronary artery without angina pectoris; Z80.8 Family history of malignant neoplasm of other organs or systems; Z82.49 Family history of ischemic heart disease and other diseases of the circulatory system
CPT/HCPCS: 36415; 80048; 80053; 82607; 82728; 82747; 82962; 83036; 83550; 85025; 85027; 94640; G0378; J0360; J1815; J7030